=== PATIENT | male | born 1950 | race Caucasian/White ===

== ENCOUNTER 2017-03-29 10:26 | Emergency (ER) | payer MEDICARE ==
[2017-03-29 10:37] LABS: Glucose,Whole Blood 167 mg/dL (75-99)
--- NOTE | 2017-03-29 10:55 | ED ---
General Adult HPI - General Chief complaint: Syncope Stated complaint: Syncope Time Seen by Provider: 03/29/17 10:29 Source: patient, RN notes reviewed Mode of arrival: EMS Limitations: no limitations - History of Present Illness Initial comments: Patient is a pleasant 66-year-old male presenting to the emergency department following syncopal episode. Episode occurred just prior to arrival at a restaurant. Patient states he did have a coughing episode prior to passing out. Patient states he had a similar problem Wednesday also associated with coughing and passing out. Patient is symptom-free at this time. No dyspnea. Patient has had a cough for several days with occasional noncolored sputum. No chest pain. No headache or confusion or weakness. - Related Data Home Medications Medication Instructions Recorded Confirmed Ibuprofen [Motrin] 800 mg PO TID PRN 03/29/17 03/29/17 Lisinopril [Zestril] 10 mg PO DAILY 03/29/17 03/29/17 Metoprolol Succinate (ER) [Toprol 50 mg PO DAILY 03/29/17 03/29/17 XL] PARoxetine [Paxil] 20 mg PO DAILY 03/29/17 03/29/17 Simvastatin [Zocor] 40 mg PO HS 03/29/17 03/29/17 Terazosin [Hytrin] 5 mg PO BID 03/29/17 03/29/17 metFORMIN HCL [Glucophage] 500 mg PO DAILY 03/29/17 03/29/17 Allergies Allergy/AdvReac Type Severity Reaction Status Date / Time latex Allergy Rash/Hives Verified 03/29/17 10:50 Review of Systems ROS Statement: Those systems with pertinent positive or pertinent negative responses have been documented in the HPI. ROS Other: All systems not noted in ROS Statement are negative. Constitutional: Denies: fever Eyes: Denies: eye pain ENT: Denies: ear pain Respiratory: Reports: cough. Denies: dyspnea Cardiovascular: Denies: chest pain Endocrine: Denies: fatigue Gastrointestinal: Denies: abdominal pain Genitourinary: Denies: dysuria Musculoskeletal: Denies: back pain Skin: Denies: rash Neurological: Denies: weakness Past Medical History Past Medical History: Diabetes Mellitus, Hyperlipidemia, Hypertension History of Any Multi-Drug Resistant Organisms: None Reported Past Surgical History: Orthopedic Surgery Past Psychological History: Anxiety Smoking Status: Current every day smoker Past Alcohol Use History: Daily Past Drug Use History: None Reported General Exam Limitations: no limitations General appearance: alert, in no apparent distress Head exam: Present: atraumatic Eye exam: Present: normal appearance, PERRL, EOMI. Absent: nystagmus ENT exam: Present: normal oropharynx Neck exam: Present: normal inspection Respiratory exam: Present: normal lung sounds bilaterally Cardiovascular Exam: Present: normal rhythm, tachycardia Expanded Peripheral pulses: 2+: Radial (R), Radial (L), Dorsalis Pedis (R), Dorsalis Pedis (L) GI/Abdominal exam: Present: soft. Absent: tenderness Extremities exam: Present: normal inspection. Absent: pedal edema, calf tenderness Neurological exam: Present: alert, CN II-XII intact. Absent: motor sensory deficit Expanded Speech: Present: fluid speech Cranial nerves: EOM's Intact: Normal, Facial Sensation: Normal Cerebellar function: Finger to Nose: Normal Sensory exam: Upper Extremity Light Touch: Normal, Lower Extremity Light Touch: Normal Motor strength exam: RUE: 5, LUE: 5, RLE: 5, LLE: 5 Eye Response: (4) open spontaneously Motor Response: (6) obeys commands Verbal Response: (5) oriented Psychiatric exam: Present: normal affect, normal mood Skin exam: Present: normal color Course Vital Signs 03/29/17 03/29/17 03/29/17 10:26 10:51 11:30 Temperature 98.3 F Pulse Rate 110 H 99 Respiratory 20 16 Rate Blood Pressure 140/84 144/75 O2 Sat by Pulse 98 95 96 Oximetry 03/29/17 12:06 Temperature Pulse Rate 102 H Respiratory 16 Rate Blood Pressure 153/72 O2 Sat by Pulse 95 Oximetry EKG Findings - EKG Comments: EKG Findings:: Sinus tachycardia 110. TN 148. QRS 82. QT 344. QTC 465. Normal axis. Normal QRS. No acute ST change. Medical Decision Making - Medical Decision Making Patient reexamined and resting comfortably in bed. Patient is symptom-free. Patient is updated on results. Patient recommended admission for further evaluation. refuses admission and does demonstrate medical decision making. Patient does understand that all cause of syncope and has not been completely ruled out at this time. - Lab Data Result diagrams: 03/29/17 12:06 03/29/17 12:06 Lab Results 1003/29/17 03/29/17 Range/Units 10:35 12:06 12:06 WBC 8.9 (3.8-10.6) k/uL RBC 3.86 L (4.30-5.90) m/uL Hgb 13.3 (13.0-17.5) gm/dL Hct 38.6 L (39.0-53.0) % MCV 99.9 (80.0-100.0) fL MCH 34.4 (25.0-35.0) pg MCHC 34.4 (31.0-37.0) g/dL RDW 12.1 (11.5-15.5) % Plt Count 200 (150-450) k/uL Neutrophils % 76 % Lymphocytes % 13 % Monocytes % 6 % Eosinophils % 4 % Basophils % 0 % Neutrophils # 6.7 (1.3-7.7) k/uL Lymphocytes # 1.1 (1.0-4.8) k/uL Monocytes # 0.5 (0-1.0) k/uL Eosinophils # 0.4 (0-0.7) k/uL Basophils # 0.0 (0-0.2) k/uL PT (9.0-12.0) sec INR (<1.2) APTT (22.0-30.0) sec D-Dimer (<0.60) mg/L FEU Sodium (137-145) mmol/L Potassium (3.5-5.1) mmol/L Chloride (98-107) mmol/L Carbon Dioxide (22-30) mmol/L Anion Gap mmol/L BUN (9-20) mg/dL Creatinine (0.66-1.25) mg/dL Est GFR (MDRD) Af Amer (>60 ml/min/1.73 sqM) Est GFR (MDRD) Non-Af (>60 ml/min/1.73 sqM) Glucose (74-99) mg/dL POC Glucose (mg/dL) 167 H (75-99) mg/dL POC Glu Physical Security Engineer ID Beverly Hernandez Calcium (8.4-10.2) mg/dL Magnesium (1.6-2.3) mg/dL Total Bilirubin (0.2-1.3) mg/dL AST (17-59) U/L ALT (21-72) U/L Alkaline Phosphatase (38-126) U/L Total Creatine Kinase 60 (55-170) U/L CK-MB (CK-2) 0.5 (0.0-2.4) ng/mL CK-MB (CK-2) Rel Index 0.8 Troponin I <0.012 (0.000-0.034) ng/mL Total Protein (6.3-8.2) g/dL Albumin (3.5-5.0) g/dL Urine Color Urine Appearance (Clear) Urine pH (5.0-8.0) Ur Specific Dalton (1.001-1.035) Urine Protein (Negative) Urine Glucose (UA) (Negative) Urine Ketones (Negative) Urine Blood (Negative) Urine Nitrite (Negative) Urine Bilirubin (Negative) Urine Urobilinogen (<2.0) mg/dL Ur Leukocyte Esterase (Negative) Urine RBC (0-5) /hpf Urine WBC (0-5) /hpf Ur Squamous Epith Cells (0-4) /hpf Hyaline Casts (0-2) /lpf Urine Mucus (None) /hpf 03/29/17 03/29/17 03/29/17 Range/Units 12:06 12:06 13:20 WBC (3.8-10.6) k/uL RBC (4.30-5.90) m/uL Hgb (13.0-17.5) gm/dL Hct (39.0-53.0) % MCV (80.0-100.0) fL MCH (25.0-35.0) pg MCHC (31.0-37.0) g/dL RDW (11.5-15.5) % Plt Count (150-450) k/uL Neutrophils % % Lymphocytes % % Monocytes % % Eosinophils % % Basophils % % Neutrophils # (1.3-7.7) k/uL Lymphocytes # (1.0-4.8) k/uL Monocytes # (0-1.0) k/uL Eosinophils # (0-0.7) k/uL Basophils # (0-0.2) k/uL PT 10.7 (9.0-12.0) sec INR 1.1 (<1.2) APTT 23.0 (22.0-30.0) sec D-Dimer 1.30 H (<0.60) mg/L FEU Sodium 138 (137-145) mmol/L Potassium 4.2 (3.5-5.1) mmol/L Chloride 101 (98-107) mmol/L Carbon Dioxide 27 (22-30) mmol/L Anion Gap 10 mmol/L BUN 14 (9-20) mg/dL Creatinine 0.72 (0.66-1.25) mg/dL Est GFR (MDRD) Af Amer >60 (>60 ml/min/1.73 sqM) Est GFR (MDRD) Non-Af >60 (>60 ml/min/1.73 sqM) Glucose 134 H (74-99) mg/dL POC Glucose (mg/dL) (75-99) mg/dL POC Glu Physical Security Engineer ID Calcium 8.9 (8.4-10.2) mg/dL Magnesium 1.5 L (1.6-2.3) mg/dL Total Bilirubin 0.3 (0.2-1.3) mg/dL AST 58 (17-59) U/L ALT 48 (21-72) U/L Alkaline Phosphatase 73 (38-126) U/L Total Creatine Kinase (55-170) U/L CK-MB (CK-2) (0.0-2.4) ng/mL CK-MB (CK-2) Rel Index Troponin I (0.000-0.034) ng/mL Total Protein 7.0 (6.3-8.2) g/dL Albumin 3.8 (3.5-5.0) g/dL Urine Color Yellow Urine Appearance Clear (Clear) Urine pH 5.5 (5.0-8.0) Ur Specific Dalton 1.020 (1.001-1.035) Urine Protein 1+ H (Negative) Urine Glucose (UA) Negative (Negative) Urine Ketones Negative (Negative) Urine Blood Negative (Negative) Urine Nitrite Negative (Negative) Urine Bilirubin Negative (Negative) Urine Urobilinogen 2.0 (<2.0) mg/dL Ur Leukocyte Esterase Negative (Negative) Urine RBC 1 (0-5) /hpf Urine WBC 1 (0-5) /hpf Ur Squamous Epith Cells <1 (0-4) /hpf Hyaline Casts 6 H (0-2) /lpf Urine Mucus Moderate H (None) /hpf - Radiology Data Radiology results: report reviewed (Computed tomography scan of the brain shows no acute abnormality. Age-related atrophy. CT angios chest shows no evidence of pulmonary embolism.), image reviewed (Two-view chest x-ray shows lap band.) Disposition Clinical Impression: Syncope Disposition: Left Against Medical Advice Instructions: Syncope (ED) Additional Instructions: Please follow-up with primary care physician today or tomorrow. Return for difficulty breathing, chest pain, cough, passing out, worsening symptoms or any other concerns. Referrals: Inocencia Ashley DO [Primary Care Provider] - 1-2 days Time of Disposition: 15:09
[2017-03-29 12:17] LABS: Basophils % (A) 0 %; CH 33.7; CHCM 33.8; Eosinophils # (A) 0.4 k/uL (0-0.7); Eosinophils % (A) 4 %; HCT 38.6 % (39.0-53.0); HDW 2.42; HGB 13.3 gm/dL (13.0-17.5); Luc # (Auto) 0.13; Luc % (Auto) 2; Lymphocytes # (A) 1.1 k/uL (1.0-4.8); Lymphocytes % (A) 13 %; MCH 34.4 pg (25.0-35.0); MCHC 34.4 g/dL (31.0-37.0); MCV 99.9 fL (80.0-100.0); Mean Platelet Volume 7.3; Monocytes # (A) 0.5 k/uL (0-1.0); Monocytes % (A) 6 %; Neutrophils # (A) 6.7 k/uL (1.3-7.7); Neutrophils % (A) 76 %; RBC 3.86 m/uL (4.30-5.90); RDW 12.1 % (11.5-15.5); WBC 8.9 k/uL (3.8-10.6); WBC (Perox) 8.15
--- NOTE | 2017-03-29 12:22 | CT ---
EXAMINATION TYPE: CT brain wo con DATE OF EXAM: 03/29/2017 COMPARISON: Prior report dated February 2000 HISTORY: syncope CT DLP: 1121 mGycm Automated exposure control for dose reduction was used. Helical imaging through the brain FINDINGS: There is cortical atrophy. Periventricular white matter shows patchy low attenuation. There is no hem orrhage or hydrocephalus. Inflammatory change present in the sphenoid sinus and ethmoid air cells. Ce rebral vascular calcifications are noted. IMPRESSION: NO ACUTE BRAIN ABNORMALITY. SINUS DISEASE. NONSPECIFIC WHITE MATTER DEMYELINATION LIKELY DUE TO CHRON IC SMALL VESSEL ISCHEMIA, AGE RELATED ATROPHY.
--- NOTE | 2017-03-29 12:24 | XR ---
EXAMINATION TYPE: XR chest 2V DATE OF EXAM: 03/29/2017 COMPARISON: NONE HISTORY: Syncope TECHNIQUE: Frontal and lateral views of the chest are obtained. FINDINGS: Heart size is at the upper limit of normal. There are overlying cardiac leads. No focal pn eumonia, pneumothorax, or pleural effusion. LAP-BAND shows a transverse orientation. Pulmonary vascul arity and mirian within normal limits. Postop change noted to the left shoulder. IMPRESSION: Transverse orientation of the lap band, correlate for possible band slip, correlate with postoperative exam. Borderline cardiac size. Postop changes.
[2017-03-29 12:29] LABS: INR 1.1 (<1.2); Prothrombin Time 10.7 sec (9.0-12.0)
[2017-03-29 12:30] LABS: ALT 48 U/L (21-72); AST 58 U/L (17-59); Alkaline Phosphatase 73 U/L (38-126); Anion Gap 10 mmol/L; Blood Urea Nitrogen 14 mg/dL (9-20); Calcium 8.9 mg/dL (8.4-10.2); Carbon Dioxide 27 mmol/L (22-30); Chloride 101 mmol/L (98-107); Glucose 134 mg/dL (74-99); Magnesium 1.5 mg/dL (1.6-2.3); Non-African American GFR(MDRD) >60 (>60 ml/min/1.73 sqM); Potassium 4.2 mmol/L (3.5-5.1); Sodium 138 mmol/L (137-145); Total Bilirubin 0.3 mg/dL (0.2-1.3)
[2017-03-29 12:44] LABS: Creatine Kinase 60 U/L (55-170)
[2017-03-29 12:56] LABS: Creatine Kinase MB 0.5 ng/mL (0.0-2.4); Troponin I <0.012 ng/mL (0.000-0.034)
[2017-03-29 13:42] LABS: Appearance,Urine Clear (Clear); Bilirubin,Urine Negative (Negative); Glucose,Urine (UA) Negative (Negative); Ketones,Urine Negative (Negative); Leukocyte Esterase,Urine Negative (Negative); Mucus,Urine Moderate /hpf; Nitrite,Urine Negative (Negative); PH, Urine 5.5 (5.0-8.0); Particle Count 3934; Protein,Urine 1+ (Negative); RBC,Urine 1 /hpf (0-5); Squamous Epithelial Cell,Urine <1 /hpf (0-4); UA Billing (MACRO vs. MICRO) MICRO; WBC,Urine 1 /hpf (0-5)
[2017-03-29] MEDS ORDERED: RX INFO: IV CONTRAST WAS GIVEN 1 EACH MISC MISCELLANE PRN (14:11)
--- NOTE | 2017-03-29 14:57 | CT ---
EXAMINATION TYPE: CT angio chest DATE OF EXAM: 03/29/2017 COMPARISON: NONE HISTORY: Cough and syncope. CT DLP: 597 mGycm. Automated Exposure Control for Dose Reduction was Utilized. CONTRAST: CTA scan of the thorax is performed with IV Contrast, patient injected with 70 mL of Omnipaque 350, p ulmonary embolism protocol. MIP Images are created on CT scanner and reviewed. FINDINGS: LUNGS: Dependent atelectasis in both lower lobes is present otherwise lungs are grossly clear. Ther e is no suspicious parenchymal nodule or mass identified bilaterally. There is no pleural effusion or pneumothorax seen bilaterally. The tracheobronchial tree is patent. MEDIASTINUM: There is satisfactory enhancement of the pulmonary artery and its branches, there is no CT evidence for pulmonary embolism. There are no greater than 1 cm hilar or mediastinal lymph nodes. There are prominent but scattered subcentimeter thoracic lymph nodes. No cardiomegaly or pericardia l effusion is seen. OTHER: Liver is diffusely low dense consistent with fatty infiltration. Lap band device is noted in f elt satisfactory in position just below diaphragm. There is fairly moderate to severe multilevel spur ring in the spine. Metallic hardware from left shoulder surgery is partially imaged. IMPRESSION: 1. No CT evidence for acute pulmonary embolism. No suspicious acute pulmonary process or infiltrate.
[2017-03-29 15:28] VITALS: BP 148/70; PULSE 99; RESP 18; TEMP 98.7
== END 2017-03-29 15:15 | disposition left against medical advice (07) ==
LOC: EC 10:26
DX: R55 Syncope and collapse (principal); G31.9 Degenerative disease of nervous system, unspecified; R00.0 Tachycardia, unspecified; R05 Cough; E78.5 Hyperlipidemia, unspecified; I10 Essential (primary) hypertension; E11.9 Type 2 diabetes mellitus without complications; F41.9 Anxiety disorder, unspecified; F17.200 Nicotine dependence, unspecified, uncomplicated; Z79.84 Long term (current) use of oral hypoglycemic drugs; Z79.899 Other long term (current) drug therapy; Z91.040 Latex allergy status
CPT/HCPCS: 36415; 93005; 85379; 80053; 82550; 82553; 83735; 84484; 85025; 85610; 85730; 81001; 71020; 70450; 71275; 99285; Q9967

== ENCOUNTER 2017-04-27 07:11 | Day surgery (SDC) | payer MEDICARE ==
[2017-04-22 09:13] VITALS: BMI 30.7
[~2017-04-27 07:11] MED LIST: LACTATED RINGERS 1,000 ML IV SCH
[2017-04-27] MEDS: CYCLOPENTOLATE 1% OPHTH SOLN 2 ML BTL OP ONE ×3 (08:31→08:49)
[2017-04-27] MEDS: KETOROLAC 0.5% OPHTH DROPS 5 ML BTL OP ONE ×3 (08:34→08:51)
[2017-04-27] MEDS: PHENYLEPHRINE 10% OPHTH DROPS 5 ML BTL OP ONE ×3 (08:36→08:53)
[2017-04-27 08:39] VITALS: RESP 16; TEMP 97.2
[2017-04-27 08:39] LABS: Glucose,Whole Blood 192 mg/dL (75-99)
[2017-04-27] MEDS ORDERED: LIDOCAINE 1% 20 ML VIAL (10MG/ML) FOR IV START INTRADERMA ONE (08:39)
[2017-04-27] MEDS ORDERED: PROPOFOL 10 MG/ML 20 ML VIAL IV ONE (09:35)
[2017-04-27] MEDS ORDERED: EPINEPHrine (PF) 0.5 ML in BALANCED SALT IRRIG SOLN COMB2 500 ML IRRIGATION ONE (09:39)
[2017-04-27] MEDS ORDERED: HYALURONATE SODIUM INTRAOCULAR 1 EACH SYRINGE (10MG/ML) INTRAOCULA ONE (09:40)
[2017-04-27] MEDS ORDERED: BALANCED SALT IRRIG SOLN COMB2 15 ML IRRIG.SOLN INTRAOCULA ONE (09:40)
--- NOTE | 2017-04-27 10:02 | P.OP ---
Date of Procedure: 04/27/17 Procedure(s) Performed: PREOPERATIVE DIAGNOSIS: Cataract, right eye. POSTOPERATIVE DIAGNOSIS: Cataract, right eye. OPERATION: Phacoemulsification cataract, right eye. DESCRIPTION OF PROCEDURE: The patient was taken to the preoperative holding area. Intravenous Propofol was given so as to bring about adequate sedation. The following mixture was given for local anesthesia: 5 mL of 2% lidocaine, 5 mL of 0.75% Marcaine, and 1 mL of Wydase. Approximately 4 mL was injected in the retrobulbar space of the surgical eye. Additional 1 mL was then directed to the temporal area of the surgical eye. This was performed to allow adequate neurological block of the facial muscles. The patient was revived and then taken into the operative room. The patient was prepped and draped in the usual sterile manner for the operative eye. A lid speculum was put into position. The conjunctiva was resected back from the limbus in the 12 o'clock position. Bleeding was controlled with electrocautery. A #69 blade was then used and a half-thickness scleral incision approximately 1-mm posterior to the limbus was made on bare sclera. This was shelved in the clear cornea using a crescent knife. Next a 15-degree blade was used to make a stab incision at the 3 o' clock position at the corneolimbal interface. Keratome blade was then used and the superior wound was extended into the anterior chamber. Viscoelastic was injected into the anterior chamber and to maintain its form. Next, a cystotome was used and a continuous anterior capsulotomy was made without difficulty. Hydrodissection using a blunt cannula and BSS was performed. Phaco probe was then employed and a groove extending from 12 to 6 o'clock in the lens was created. A Nikhil wand was used through the stab incision so as to perform a divide and conquer technique. Next an irrigation aspiration probe was utilized and any residual cortex was removed from the eye. Again, viscoelastic was injected into the anterior chamber. An Shahriar posterior chamber lens implant was placed in the cartridge and injected into the anterior chamber without difficulty. The [employer] hook was utilized to spin the lens into position and this was again performed without any difficulty. The irrigation and aspiration probe was again employed and any residual viscoelastic was removed from the eye. Then BSS was injected into the limbal stab incision and the anterior chamber re-inflated. The conjunctiva was reapproximated using electrocautery. One drop of 0.25% Timoptic was placed over the corneal along with TobraDex ophthalmic ointment. Two sterile patches and a Sevilla eye shield were taped into position. The patient was transported to the recovery room in stable condition. Pathology: none sent Condition: stable Disposition: same day
[2017-04-27 10:08] LABS: Glucose,Whole Blood 202 mg/dL (75-99)
[2017-04-27 10:17] VITALS: BP 135/82; PULSE 69
[2017-04-27] MEDS ORDERED: TIMOLOL 0.5% OPHTH SOLN (PF) 0.2 ML DROPERETTE OP ONE (23:00)
[2017-04-27] MEDS ORDERED: BUPIVACAINE (PF) 0.75% 5 ML, LIDOCAINE 4% (PF) 5 ML, HYALURONIDASE, HUMAN RECOMB 150 UNIT MISCELLANE ONE ×3 (23:00)
[2017-04-27] MEDS ORDERED: GENTAMICIN/PREDNISOL AC OPHTH OINT 3.5GM OPHTHALMIC ONE (23:00)
== END 2017-04-27 10:31 | disposition home or self-care (01) ==
LOC: OR 07:11
PROVIDERS: ATTEND Ophthalmology
DX: E11.36 Type 2 diabetes mellitus with diabetic cataract (principal); I10 Essential (primary) hypertension; E78.5 Hyperlipidemia, unspecified; F17.290 Nicotine dependence, other tobacco product, uncomplicated; Z91.040 Latex allergy status; Z79.82 Long term (current) use of aspirin; Z79.1 Long term (current) use of non-steroidal anti-inflammatories (NSAID); Z79.84 Long term (current) use of oral hypoglycemic drugs; Z79.899 Other long term (current) drug therapy
CPT/HCPCS: 66984; V2632; J2001; J3470; J0171; J2704

== ENCOUNTER → 2017-08-30 | Outpatient (CLI) | payer MEDICARE ==
[2017-08-30 13:48] VITALS: BP 138/75; PULSE 95; RESP 15; BMI 32.4
--- NOTE | 2017-08-30 16:49 | P.HPBAR ---
Bariatric H&P - History & Physicial H&P Date: 08/30/17 History & Physicial: Visit/CC: band fill due to 8lb weight gain Patient initial contact: Initial weight: 87.543 kg Initial weight in pounds: 193.00 Height: 5 ft 6 in Initial BMI: 31.1 Last weight: Current weight: 91.172 kg Current weight in pounds: 201.00 Current BMI: 32.4 [place] body weight (based on NIH guidelines): 64.41 kg Excess body weight loss: The patient is a 67 year-old M who presents for Bariatric Assessment. The patient presents today for her LAP-BAND follow-up. He states he has no obstruction he has gained 8 pounds the last 2 weeks. Past Medical History Past Medical History: Diabetes Mellitus, Eye Disorder, Hyperlipidemia, Hypertension Additional Past Medical History / Comment(s): CATARACTS BILAT EYES History of Any Multi-Drug Resistant Organisms: None Reported Past Surgical History: Bariatric Surgery, Cholecystectomy, Orthopedic Surgery Additional Past Surgical History / Comment(s): PARTIAL LT KNEE REPLACEMENT. PARTIAL LT SHOULDER REPLACEMENT. RT WRIST SX. LAB BAND. COLONOSCOPY AND EGD Past Anesthesia/Blood Transfusion Reactions: No Reported Reaction Past Psychological History: Anxiety Smoking Status: Current every day smoker Past Alcohol Use History: Occasional Additional Past Alcohol Use History / Comment(s): SMOKES 2 CIGARS DAILY-SINCE AGE 20 Past Drug Use History: None Reported - Past Family History Mother Family Medical History: No Reported History Surgical - Exam Vital Signs Pulse Resp BP 95 15 138/75 08/30/17 13:45 08/30/17 13:45 08/30/17 13:45 - General well developed, no distress - Abdomen Abdomen: soft, non tender Bariatric Assessment & Plan Plan: The patient LAP-BAND was adjusted. He is found have a malfunctioning port. There is no fluid in his band. Patient will be scheduled for replacement of LAP -BAND port. Patient is also given the opportunity thinkable conversion sleeve gastrectomy he'll contact us when he makes his decision. Bariatric Checklist Checklist: Plan: Checklist: EGD: 1. Hiatal hernia: 2. H. Pylori: HgbA1c: Vitamin D: Smoking: Current every day smoker Primary care physician referral: Dr. Bladimir Miramontes ([place]) Psychiatry clearance: Cardiology clearance: Sleep study: Diet journal: VTE risk score: VTE risk level: Rehab needs at discharge:
== END | disposition home or self-care (01) ==
LOC: BARWHC3 13:29
PROVIDERS: ATTEND Surgery
DX: Z48.815 Encounter for surgical aftercare following surgery on the digestive system (principal); F17.200 Nicotine dependence, unspecified, uncomplicated; Z98.84 Bariatric surgery status
CPT/HCPCS: 99212

== ENCOUNTER 2017-09-24 07:15 | Day surgery (SDC) | payer MEDICARE ==
[2017-09-16 10:12] VITALS: BMI 31.9
[~2017-09-24 07:15] MED LIST changes: +DEXAMETHASONE SOD PHOSPHATE 10 MG/ML 1 ML VIAL IV ONE; +MIDAZOLAM 2 MG/2 ML VIAL IV PRN; +ONDANSETRON 4 MG/2 ML VIAL IVP ONE; +SCOPOLAMINE 1.5MG/72HR PATCH TRANSDERM ONE; +ceFAZolin IN SWFI 2 GM/20 ML SYRINGE IVP ONE; +fentaNYL (PF) 50 MCG/ML 2 ML AMP IV PRN
[2017-09-24 08:07] VITALS: RESP 16
[2017-09-24 08:12] LABS: Glucose,Whole Blood 173 mg/dL (75-99)
[2017-09-24] MEDS ORDERED: LIDOCAINE 1% 20 ML VIAL (10MG/ML) FOR IV START INTRADERMA ONE (08:14)
--- NOTE | 2017-09-24 10:09 | P.GSHP ---
History of Present Illness H&P Date: 09/24/17 Chief Complaint: LAP-BAND port malfunction This a 67-year-old male who presents today for laparoscopic removal and replacement of LAP-BAND port. Patient has had issues with inability of his LAP- BAND port due to retained fluid. Past Medical History Past Medical History: Diabetes Mellitus, Eye Disorder, Hyperlipidemia, Hypertension, Sleep Apnea/CPAP/BIPAP Additional Past Medical History / Comment(s): USES CPAP. LAP BAND W/ PORT PROBLEMS. History of Any Multi-Drug Resistant Organisms: None Reported Past Surgical History: Bariatric Surgery, Cholecystectomy, Orthopedic Surgery Additional Past Surgical History / Comment(s): PARTIAL LT KNEE REPLACEMENT. PARTIAL LT SHOULDER REPLACEMENT. RT WRIST SX. LAB BAND 2008 EST. COLONOSCOPY AND EGD Past Anesthesia/Blood Transfusion Reactions: No Reported Reaction Smoking Status: Current every day smoker - Past Family History Mother Family Medical History: No Reported History Medications and Allergies Home Medications Medication Instructions Recorded Confirmed Type Ibuprofen [Motrin] 800 mg PO TID PRN 03/29/17 09/24/17 History Metoprolol Succinate (ER) [Toprol 50 mg PO DAILY 03/29/17 09/24/17 History XL] PARoxetine [Paxil] 20 mg PO DAILY 03/29/17 09/24/17 History Simvastatin [Zocor] 40 mg PO HS 03/29/17 09/24/17 History Terazosin [Hytrin] 5 mg PO BID 03/29/17 09/24/17 History metFORMIN HCL [Glucophage] 500 mg PO DAILY 03/29/17 09/24/17 History Aspirin 81 mg PO DAILY 04/06/17 09/24/17 History Lisinopril [Zestril] 40 mg PO HS 08/30/17 09/24/17 History Glucosamine/Chondr Peterson A Sod [Osteo 1 each PO BID 09/16/17 09/24/17 History Bi-Flex Caplet] Multivitamins, Thera [Multivitamin 2 tab PO DAILY 09/16/17 09/24/17 History (formulary)] Allergies Allergy/AdvReac Type Severity Reaction Status Date / Time latex Allergy Rash/Hives Verified 09/16/17 09:49 Surgical - Exam Vital Signs Temp Pulse Resp BP Pulse Ox 97.5 F L 74 16 144/69 97 09/24/17 07:55 09/24/17 07:55 09/24/17 07:55 09/24/17 07:55 09/24/17 07:55 - General well developed, no distress - Eyes PERRL - ENT normal pinna - Neck no masses - Respiratory normal expansion - Cardiovascular Rhythm: regular - Abdomen Abdomen: soft, non tender Results - Labs Abnormal Lab Results - Last 24 Hours (Table) 09/24/17 Range/Units 08:05 POC Glucose (mg/dL) 173 H (75-99) mg/dL Assessment and Plan Assessment: LAP-BAND port bowel function. We'll perform laparoscopic removal and replacement of LAP-BAND port.
[2017-09-24] MEDS ORDERED: ROCURONIUM BROMIDE 10 MG/ML 10 ML VIAL IV ONE (10:26)
[2017-09-24] MEDS ORDERED: GLYCOPYRROLATE 0.2 MG/ML 2 ML VIAL ONE (10:26)
[2017-09-24] MEDS ORDERED: SUCCINYLCHOLINE CHLORIDE 100 MG/5 ML SYR IV ONE (10:26)
[2017-09-24] MEDS ORDERED: fentaNYL (PF) 50 MCG/ML 2 ML AMP ONE (10:26)
[2017-09-24] MEDS ORDERED: MIDAZOLAM 2 MG/2 ML VIAL ONE (10:26)
[2017-09-24] MEDS ORDERED: PROPOFOL 10 MG/ML 20 ML VIAL IV ONE (10:26)
[2017-09-24] MEDS ORDERED: NEOSTIGMINE 1 MG/ML 10 ML VIAL ONE (10:26)
[2017-09-24] MEDS ORDERED: DEXAMETHASONE SOD PHOS (MDV) 100 MG/10 ML VIAL ONE (10:26)
[2017-09-24] MEDS ORDERED: KETOROLAC 30 MG/ML 1 ML VIAL ONE (10:26)
[2017-09-24] MEDS ORDERED: BUPIVACAINE (PF) 0.25% 30 ML VIAL SQ ONE ×2 (10:35)
[2017-09-24 11:35] VITALS: TEMP 98
[2017-09-24] MEDS ORDERED: LACTATED RINGERS 1,000 ML IV ONE (11:38)
[2017-09-24 11:57] LABS: Glucose,Whole Blood 207 mg/dL (75-99)
[2017-09-24 12:55] VITALS: BP 138/77; PULSE 71
--- NOTE | 2017-09-29 08:53 | P.OP ---
Date of Procedure: 09/24/14 Preoperative Diagnosis: LAP-BAND port malfunction Postoperative Diagnosis: LAP-BAND port malfunction Procedure(s) Performed: Laparoscopic removal and replacement of LAP-BAND port Anesthesia: ZACKARY Surgeon: Shiva Mercado Pathology: other (LAP-BAND port) Condition: stable Disposition: PACU Description of Procedure: The patient's placed the operative table in the supine position. He received general anesthesia. His abdomen was prepped and draped usual sterile fashion. The skin was incised 1% local Xylocaine. Then using a 15 blade the skin was incised. Using blunt and sharp dissection with cautery the port was withdrawn from the subcutaneous tissues. tube was then cut. The LAP-BAND port area had evidence of rubbing on the fascia which caused an erosion of the port tubing. Using a 5 mm blade less trocar under direct visualization the pleural cavity was entered under direct visualization and then insufflated. After adequate insufflation the laparoscope was placed back. Cavity. Next a 10 mm trochars placed in the right epigastric position and then the PEG tube for the LAP-BAND system was brought up through the similar trocar site. The trochars withdrawn. And then the new LAP-BAND port was connected to the LAP-BAND Tube and then secured to the fascia using 0 Nurolon suture. The LAP-BAND was insufflated with 1 mL of normal saline. There is no bleeding seen. The skin was closed interrupted 3-0 Monocryl suture. Dermabond was applied. Patient top procedure well and was sent to recovery in stable condition.
== END 2017-09-24 13:03 | disposition home or self-care (01) ==
LOC: OR 07:15
PROVIDERS: ATTEND Surgery
DX: T85.518A Breakdown (mechanical) of other gastrointestinal prosthetic devices, implants and grafts, initial encounter (principal); E11.9 Type 2 diabetes mellitus without complications; E78.5 Hyperlipidemia, unspecified; I10 Essential (primary) hypertension; G47.33 Obstructive sleep apnea (adult) (pediatric); Z99.89 Dependence on other enabling machines and devices; F17.290 Nicotine dependence, other tobacco product, uncomplicated; Z79.84 Long term (current) use of oral hypoglycemic drugs; Z79.82 Long term (current) use of aspirin; Z79.899 Other long term (current) drug therapy; Z91.040 Latex allergy status
CPT/HCPCS: 43659; C1751; J2250; J1100 ×2; J2710; J2405; J3010; J1885; J0330; J2704; J0690

== ENCOUNTER → 2017-10-04 | Outpatient (CLI) | payer MEDICARE ==
[2017-10-04 15:00] VITALS: BP 149/77; PULSE 79; TEMP 98.5; BMI 32.5
--- NOTE | 2017-10-04 15:39 | P.HPBAR ---
Bariatric H&P - History & Physicial H&P Date: 10/04/17 History & Physicial: Visit/CC: post op follow up Patient initial contact: Initial weight: 87.543 kg Initial weight in pounds: 193.00 Height: 5 ft 6 in Initial BMI: 31.1 Last weight: Current weight: 91.49 kg Current weight in pounds: 201.70 Current BMI: 32.5 [place] body weight (based on NIH guidelines): 64.41 kg Excess body weight loss: The patient is a 67 year-old M who presents for Bariatric Assessment. The patient presents today for lab band follow up. He is requesting a fill of his band. He currently feels hungry. Past Medical History Past Medical History: Diabetes Mellitus, Eye Disorder, Hyperlipidemia, Hypertension, Sleep Apnea/CPAP/BIPAP Additional Past Medical History / Comment(s): USES CPAP. LAP BAND W/ PORT PROBLEMS. History of Any Multi-Drug Resistant Organisms: None Reported Past Surgical History: Bariatric Surgery, Cholecystectomy, Orthopedic Surgery Additional Past Surgical History / Comment(s): PARTIAL LT KNEE REPLACEMENT. PARTIAL LT SHOULDER REPLACEMENT. RT WRIST SX. LAB BAND 2008 EST. COLONOSCOPY AND EGD. lap band port replacement to right side abdomen 09-24-17 Past Anesthesia/Blood Transfusion Reactions: No Reported Reaction Smoking Status: Current every day smoker - Past Family History Mother Family Medical History: No Reported History Surgical - Exam Vital Signs Temp Pulse BP 98.5 F 79 149/77 10/04/17 14:56 10/04/17 14:56 10/04/17 14:56 - General well developed, no distress - Eyes PERRL - Abdomen Abdomen: soft, non tender Bariatric Assessment & Plan Plan: The patient had a recent replacement was LAP-BAND. His incision sites are clean dry intact. The patient's band was adjusted. He had 0.5 mL in the band. 2 mL was added to his band he has a total of 2.5 mL in the band. He'll follow -up in one month. Bariatric Checklist Checklist: Plan: Checklist: EGD: 1. Hiatal hernia: 2. H. Pylori: HgbA1c: Vitamin D: Smoking: Current every day smoker Primary care physician referral: Dr. Bladimir Miramontes ([place]) Psychiatry clearance: Cardiology clearance: Sleep study: Diet journal: VTE risk score: VTE risk level: Rehab needs at discharge:
== END | disposition home or self-care (01) ==
LOC: BARWHC3 14:18
PROVIDERS: ATTEND Surgery
DX: Z09 Encounter for follow-up examination after completed treatment for conditions other than malignant neoplasm (principal); T73.0XXA Starvation, initial encounter; E11.9 Type 2 diabetes mellitus without complications; E78.5 Hyperlipidemia, unspecified; I10 Essential (primary) hypertension; G47.30 Sleep apnea, unspecified; F17.200 Nicotine dependence, unspecified, uncomplicated; Z98.84 Bariatric surgery status; Z90.49 Acquired absence of other specified parts of digestive tract; Z98.890 Other specified postprocedural states; Z99.89 Dependence on other enabling machines and devices; Z96.652 Presence of left artificial knee joint; Z96.612 Presence of left artificial shoulder joint
CPT/HCPCS: 99212

== ENCOUNTER → 2017-10-11 | Outpatient (CLI) | payer MEDICARE ==
[~2017-10-11] MED LIST changes: -DEXAMETHASONE SOD PHOSPHATE 10 MG/ML 1 ML VIAL IV ONE; -LACTATED RINGERS 1,000 ML IV SCH; -MIDAZOLAM 2 MG/2 ML VIAL IV PRN; -ONDANSETRON 4 MG/2 ML VIAL IVP ONE; -SCOPOLAMINE 1.5MG/72HR PATCH TRANSDERM ONE; +SULFAMETHOX-TMP 800-160MG 1 EACH TAB PO SCH; -ceFAZolin IN SWFI 2 GM/20 ML SYRINGE IVP ONE; -fentaNYL (PF) 50 MCG/ML 2 ML AMP IV PRN
[2017-10-11 13:29] VITALS: BP 159/77; PULSE 77; TEMP 98.1; BMI 32.3
--- NOTE | 2017-10-11 15:09 | P.HPBAR ---
Bariatric H&P - History & Physicial H&P Date: 10/11/17 History & Physicial: Visit/CC: post surgery follow up Patient initial contact: Initial weight: 87.543 kg Initial weight in pounds: 193.00 Height: 5 ft 6 in Initial BMI: 31.1 Last weight: Current weight: 90.764 kg Current weight in pounds: 200.10 Current BMI: 32.3 [place] body weight (based on NIH guidelines): 64.41 kg Excess body weight loss: The patient is a 67 year-old M who presents for Bariatric Assessment. The patient presents today for follow-up. He had a recent LAP-BAND port removal and replacement. He has no real complaints. He states he has some mild cellulitis and one of his incision sites Past Medical History Past Medical History: Diabetes Mellitus, Eye Disorder, Hyperlipidemia, Hypertension, Sleep Apnea/CPAP/BIPAP Additional Past Medical History / Comment(s): USES CPAP. LAP BAND W/ PORT PROBLEMS. History of Any Multi-Drug Resistant Organisms: None Reported Past Surgical History: Bariatric Surgery, Cholecystectomy, Orthopedic Surgery Additional Past Surgical History / Comment(s): PARTIAL LT KNEE REPLACEMENT. PARTIAL LT SHOULDER REPLACEMENT. RT WRIST SX. LAB BAND 2008 EST. COLONOSCOPY AND EGD. lap band port replacement to right side abdomen 09-24-17 Past Anesthesia/Blood Transfusion Reactions: No Reported Reaction Smoking Status: Current every day smoker - Past Family History Mother Family Medical History: No Reported History Surgical - Exam Vital Signs Temp Pulse BP 98.1 F 77 159/77 10/11/17 13:09 10/11/17 13:09 10/11/17 13:09 - General well developed, no distress - Eyes PERRL - ENT normal pinna - Neck no masses - Respiratory normal expansion - Cardiovascular Rhythm: regular - Abdomen The patient has some mild cellulitis at the right incision site. Abdomen: soft, non tender Bariatric Assessment & Plan Plan: Mild cellulitis. Patient was placed on Bactrim DS. Bariatric Checklist Checklist: Plan: Checklist: EGD: 1. Hiatal hernia: 2. H. Pylori: HgbA1c: Vitamin D: Smoking: Current every day smoker Primary care physician referral: Dr. Bladimir Miramontes ([place]) Psychiatry clearance: Cardiology clearance: Sleep study: Diet journal: VTE risk score: VTE risk level: Rehab needs at discharge:
== END | disposition home or self-care (01) ==
LOC: BARWHC3 12:34
PROVIDERS: ATTEND Surgery
DX: Z09 Encounter for follow-up examination after completed treatment for conditions other than malignant neoplasm (principal); T81.4XXA Infection following a procedure, initial encounter; L03.311 Cellulitis of abdominal wall; E11.9 Type 2 diabetes mellitus without complications; E78.5 Hyperlipidemia, unspecified; I10 Essential (primary) hypertension; G47.30 Sleep apnea, unspecified; Z99.89 Dependence on other enabling machines and devices; Z98.84 Bariatric surgery status; Z90.49 Acquired absence of other specified parts of digestive tract; Z96.651 Presence of right artificial knee joint; Z96.612 Presence of left artificial shoulder joint
CPT/HCPCS: 99211

== ENCOUNTER → 2018-02-14 | Outpatient (CLI) | payer MEDICARE ==
[2018-02-14 13:26] VITALS: BP 136/81; PULSE 80; TEMP 98; BMI 31.7
--- NOTE | 2018-02-14 15:35 | P.HPBAR ---
Bariatric H&P - History & Physicial H&P Date: 02/14/18 History & Physicial: Visit/CC: lap band follow up Patient initial contact: Initial weight: 87.543 kg Initial weight in pounds: 193.00 Height: 5 ft 6 in Initial BMI: 31.1 Last weight: 200 Current weight: 89.131 kg Current weight in pounds: 196.50 Current BMI: 31.7 [place] body weight (based on NIH guidelines): 64.41 kg Excess body weight loss: The patient is a 67 year-old M who presents for Bariatric Assessment. Patient presents today for lab band follow. He is requesting a fill of his LAP-BAND. He currently feels no restriction. Past Medical History Past Medical History: Diabetes Mellitus, Eye Disorder, Hyperlipidemia, Hypertension, Sleep Apnea/CPAP/BIPAP Additional Past Medical History / Comment(s): USES CPAP. LAP BAND W/ PORT PROBLEMS. History of Any Multi-Drug Resistant Organisms: None Reported Past Surgical History: Bariatric Surgery, Cholecystectomy, Orthopedic Surgery Additional Past Surgical History / Comment(s): PARTIAL LT KNEE REPLACEMENT. PARTIAL LT SHOULDER REPLACEMENT. RT WRIST SX. LAB BAND 2008 EST. COLONOSCOPY AND EGD. lap band port replacement to right side abdomen 09-24-17 Past Anesthesia/Blood Transfusion Reactions: No Reported Reaction Smoking Status: Current every day smoker - Past Family History Mother Family Medical History: No Reported History Surgical - Exam Vital Signs Temp Pulse BP 98.0 F 80 136/81 02/14/18 13:24 02/14/18 13:24 02/14/18 13:24 - General well developed, well nourished, no distress - Eyes PERRL - Abdomen Abdomen: soft, non tender Bariatric Assessment & Plan Plan: Patient's lap band was adjusted. He had 0.5 mL added to his band. He will follow-up in 4 weeks. Bariatric Checklist Checklist: Plan: Checklist: EGD: 1. Hiatal hernia: 2. H. Pylori: HgbA1c: Vitamin D: Smoking: Current every day smoker Primary care physician referral: Dr. Bladimir Miramontes ([place]) Psychiatry clearance: Cardiology clearance: Sleep study: Diet journal: VTE risk score: VTE risk level: Rehab needs at discharge:
== END | disposition home or self-care (01) ==
LOC: BARWHC3 12:50
PROVIDERS: ATTEND Surgery
DX: Z48.815 Encounter for surgical aftercare following surgery on the digestive system (principal); F17.200 Nicotine dependence, unspecified, uncomplicated; Z98.84 Bariatric surgery status
CPT/HCPCS: 99212

== ENCOUNTER → 2020-03-19 | Outpatient (CLI) | payer MEDICARE ==
[2020-03-19 15:43] LABS: HCT 41.3 % (39.0-53.0); HGB 13.6 gm/dL (13.0-17.5); MCH 33.3 pg (25.0-35.0); MCV 100.8 fL (80.0-100.0); Mean Platelet Volume 8.5; Platelet Count 190 k/uL (150-450); RBC 4.09 m/uL (4.30-5.90); RDW 12.3 % (11.5-15.5); WBC 9.4 k/uL (3.8-10.6)
[2020-03-19 15:51] LABS: Appearance,Urine Clear (Clear); Bilirubin,Urine Negative (Negative); Blood,Urine Negative (Negative); Color,Urine Yellow; Glucose,Urine (UA) 3+ (Negative); Ketones,Urine Negative (Negative); Leukocyte Esterase,Urine Negative (Negative); Nitrite,Urine Negative (Negative); Protein,Urine Negative (Negative); Specific Gravity,Urine 1.013 (1.001-1.035); Urobilinogen,Urine <2.0 mg/dL (<2.0)
[2020-03-19 15:57] LABS: Partial Thromboplastin Time 25.3 sec (22.0-30.0); Prothrombin Time 10.5 sec (9.0-12.0)
== END | disposition home or self-care (01) ==
LOC: LABPAT 12:11
PROVIDERS: ATTEND Orthopaedic Surgery Sports Medicine
DX: Z01.818 Encounter for other preprocedural examination (principal); Z01.812 Encounter for preprocedural laboratory examination; M17.11 Unilateral primary osteoarthritis, right knee
CPT/HCPCS: 81003; 85027; 85610; 85730; 87070

== ENCOUNTER → 2020-03-19 | Outpatient (CLI) | payer MEDICARE ==
[2020-03-20 01:30] LABS: Hemoglobin A1C 6.3 % (4.0-6.0)
[2020-03-20 05:39] LABS: African American GFR (CKD) 64.1 (60.0-200.0); Albumin 4.5 g/dL (3.80-4.90); Albumin/Globulin Ratio 1.73 (1.60-3.17); Anion Gap 11.9 mmol/L (4.00-12.00); BUN/Creat Ratio 18.46 Ratio (12.00-20.00); Calcium 9.8 mg/dL (8.7-10.3); Carbon Dioxide 23.1 mmol/L (21.6-31.8); Globulin 2.6 g/dL (1.6-3.3); Non-African American GFR(CKD) 55.3 (60.0-200.0); Total Bilirubin 0.5 mg/dL (0.3-1.2); Total Protein 7.1 g/dL (6.2-8.2)
[2020-03-20 05:54] LABS: Prostate Specific Antigen 0.3 ng/mL (0.0-6.5)
== END | disposition home or self-care (01) ==
LOC: LABWHC1 12:17
PROVIDERS: ATTEND Family Medicine
DX: N40.0 Benign prostatic hyperplasia without lower urinary tract symptoms (principal); D64.9 Anemia, unspecified
CPT/HCPCS: 36415; 80053; 83036; 84153

== ENCOUNTER → 2020-04-01 | Outpatient (CLI) | payer MEDICARE ==
[2020-04-01 13:48] VITALS: BP 121/70; PULSE 86; RESP 18; TEMP 98.3; BMI 32.9
--- NOTE | 2020-04-01 14:12 | P.HPBAR ---
Bariatric H&P - History & Physicial H&P Date: 04/01/20 History & Physicial: Visit/CC: lap band adjustment Patient initial contact: Initial weight: 87.543 kg Initial weight in pounds: 193.00 Height: 5 ft 6 in Initial BMI: 31.1 Last weight: Current weight: 92.533 kg Current weight in pounds: 204.00 Current BMI: 32.9 [place] body weight (based on NIH guidelines): 64.41 kg Excess body weight loss: The patient is a 69 year-old M who presents for Bariatric Assessment. Patient resents today for her LAP-BAND adjustment. He is having in total knee replacement this week. He is requesting fluid removed. Past Medical History Past Medical History: Diabetes Mellitus, Hyperlipidemia, Hypertension, Osteoarthritis (OA), Sleep Apnea/CPAP/BIPAP Additional Past Medical History / Comment(s): USES CPAP. LAP BAND W/ PORT PROB LEMS. History of Any Multi-Drug Resistant Organisms: None Reported Past Surgical History: Bariatric Surgery, Cholecystectomy, Joint Replacement, Orthopedic Surgery Additional Past Surgical History / Comment(s): PARTIAL LT KNEE REPLACEMENT. PARTIAL LT SHOULDER REPLACEMENT. RT WRIST SX. LAB BAND 2008 EST. COLONOSCOPY AND EGD. BILAT CATARACTS REMOVED WITH LENS IMPLANTS. lap band port replacement to right side abdomen 09-24-17 Past Anesthesia/Blood Transfusion Reactions: No Reported Reaction Smoking Status: Current every day smoker - Past Family History Mother Family Medical History: No Reported History Surgical - Exam Vital Signs Temp Pulse Resp BP 98.3 F 86 18 121/70 04/01/20 13:41 04/01/20 13:41 04/01/20 13:41 04/01/20 13:41 - General well developed, well nourished, no distress - Eyes PERRL - ENT normal pinna - Neck no masses - Respiratory normal expansion - Cardiovascular Rhythm: regular - Abdomen Abdomen: soft, non tender Bariatric Assessment & Plan Plan: Patient's lap band was adjusted. 0.7 mL remove the band. He has currently empty. He'll follow-up after his new placed was done for a refill of his band. Bariatric Checklist Checklist: Plan: Checklist: EGD: 1. Hiatal hernia: 2. H. Pylori: HgbA1c: Vitamin D: Smoking: Current every day smoker Primary care physician referral: Dr. Bladimir Miramontes ([place]) Psychiatry clearance: Cardiology clearance: Sleep study: Diet journal: VTE risk score: VTE risk level: Rehab needs at discharge:
== END | disposition home or self-care (01) ==
LOC: BARWHC3 13:25
PROVIDERS: ATTEND Surgery
DX: Z46.51 Encounter for fitting and adjustment of gastric lap band (principal); F17.200 Nicotine dependence, unspecified, uncomplicated; Z98.84 Bariatric surgery status; Z90.49 Acquired absence of other specified parts of digestive tract
CPT/HCPCS: 99212

== ENCOUNTER 2020-04-04 06:47 | Day surgery (SDC) | payer MEDICARE ==
[2020-03-29 11:09] VITALS: BMI 32.3
[~2020-04-04 06:47] MED LIST changes: +ACETAMINOPHEN TAB 500 MG TAB PO ONE; +DEXAMETHASONE SOD PHOSPHATE 10 MG/ML 1 ML VIAL IV ONE; +GABAPENTIN 300 MG CAP PO ONE; +HYDROmorphone 0.5 MG/0.5 ML SYRINGE IVP PRN; +MELOXICAM 7.5 MG TAB PO ONE; +MIDAZOLAM 2 MG/2 ML VIAL IV PRN; +ONDANSETRON 4 MG/2 ML VIAL IVP ONE; +ROPIVACAINE 246.25 MG, EPINEPHrine 0.5 MG, KETOROLAC 30 MG, cloNIDine HCL/PF 80 MCG, WA... MISCELLANE ONE; -SULFAMETHOX-TMP 800-160MG 1 EACH TAB PO SCH; +TRANEXAMIC ACID 1,000 MG in SODIUM CHLORIDE 0.9% 100 ML IVPB ONE
[2020-04-04] MEDS: LACTATED RINGERS 1,000 ML IV SCH ×4 (07:20→23:44)
[2020-04-04] MEDS ORDERED: LIDOCAINE 1% (10MG/ML) FOR IV START INTRADERMA ONE (07:20)
[2020-04-04 07:41] LABS: Glucose,Whole Blood 177 mg/dL (75-99)
[2020-04-04] MEDS ORDERED: SODIUM CHLORIDE 0.9% 100 ML BAG ONE (07:54)
[2020-04-04] MEDS ORDERED: TRANEXAMIC ACID 1,000 MG/10 ML VIAL ONE (07:54)
[2020-04-04] MEDS ORDERED: MIDAZOLAM 2 MG/2 ML VIAL ONE (07:54)
[2020-04-04] MEDS ORDERED: fentaNYL (PF) 50 MCG/ML 2 ML AMP ONE (07:54)
[2020-04-04] MEDS ORDERED: ceFAZolin 3,000 MG in SODIUM CHLORIDE 0.9% IRRIGATIO 3,000 ML IRRIGATION ONE (08:30)
[2020-04-04] MEDS ORDERED: ROPIVACAINE 0.2%-NS ON-Q PUMP 1,090 MG, EMPTY PAIN BALL 1 EACH MISCELLANE PRN (08:44)
--- NOTE | 2020-04-04 08:46 | P.ANPRN ---
Procedure Note - Anesthesia - Nerve Block Performed Right Adductor Canal Infusion Time Out Performed: Yes ([id number]) Date of Procedure: 04/04/20 Procedure Start Time: 07:42 Procedure Stop Time: 07:47 Location of Patient: PreOp Indication: Acute Post-Operative Pain, Requested by Surgeon Specifically requested for management of pain by DrKate: Edwar Robison Sedation Type: Sedate with meaningful contact maintained Preparation: Sterile Prep Position: Supine Catheter Depth at Skin (cm): 6 Catheter: Indwelling Needle Types: Pajunk Needle Gauge: 21 Ultrasound used to visualize needle placement: Yes Ultrasound used to observe medication spread: Yes Injectate: 0.5% Ropivacaine (see comment for volume) Blood Aspirated: No Pain Paresthesia on Injection Noted: No Resistance on Injection: Normal Image Stored and Saved: Yes Events: Uneventful and Well Tolerated
[2020-04-04] MEDS ORDERED: HYDROcodone/APAP 5-325MG 1 EACH TAB PO PRN (09:53)
[2020-04-04] MEDS ORDERED: bisacodyL 10 MG SUPP RECTAL PRN (09:53)
[2020-04-04] MEDS ORDERED: NALOXONE 0.4 MG/ML 1 ML VIAL IV PRN (09:53)
[2020-04-04] MEDS ORDERED: MAGNESIUM HYDROXIDE 2,400 MG/10 ML CUP PO PRN (09:53)
[2020-04-04] MEDS ORDERED: HYDROmorphone 0.5 MG/0.5 ML SYRINGE IVP PRN ×3 (09:53)
[2020-04-04] MEDS ORDERED: diazePAM 5 MG TAB PO PRN (09:53)
[2020-04-04] MEDS ORDERED: ONDANSETRON 4 MG/2 ML VIAL IVP PRN (09:53)
[2020-04-04] MEDS ORDERED: traMADol 50 MG TAB PO PRN (09:53)
[2020-04-04] MEDS ORDERED: NA PHOS,M-B/NA PHOS,DI-BA 133 ML ENEMA RECTAL PRN (09:53)
[2020-04-04] MEDS ORDERED: TEMAZEPAM 15 MG CAP PO PRN (09:53)
[2020-04-04] MEDS ORDERED: ACETAMINOPHEN TAB 325 MG TAB PO PRN (09:53)
[2020-04-04 10:28] LABS: Glucose,Whole Blood 192 mg/dL (75-99)
[2020-04-04] MEDS ORDERED: LACTATED RINGERS 1,000 ML IV ONE ×2 (10:42)
--- NOTE | 2020-04-04 10:43 | XR ---
Right knee Limited HISTORY: Postop 2 views of the right knee Patient is status post right knee arthroplasty. There is anatomic alignment. Lucency is present in th e soft tissues. There are atherosclerotic vascular calcifications. IMPRESSION: Orthopedic follow-up.
--- NOTE | 2020-04-04 15:11 | OP ---
OPERATIVE REPORT DATE OF PROCEDURE: 04/04/2020 SURGEON: Edwar Robison M.D. TRANSPORTATION MODELER: CRUZ Knight. PREOPERATIVE DIAGNOSIS: Right knee osteoarthrosis. POSTOPERATIVE DIAGNOSIS: Right knee osteoarthrosis. OPERATION: Right total knee arthroplasty. ANESTHESIA: Spinal with sedation. ESTIMATED BLOOD LOSS: 100 mL. TOURNIQUET: Tourniquet time was 48 minutes at 250 mmHg. COMPLICATIONS: None apparent. DRAINS: None. DISPOSITION: Postanesthesia care unit. INDICATIONS: Amilcar is a 69-year-old male with longstanding history of right knee pain. History and physical examination are consistent with advanced right knee osteoarthrosis. He has been through significant nonoperative management up to this point. Further treatment options were discussed and he has decided to go forward with a right total knee arthroplasty. The risks of the procedure were discussed with him in detail. These risks include, but are not limited to risk of infection, nerve damage, bleeding, pain, and a small risk of deep vein thrombosis which could lead to fatal pulmonary embolism. There is also risk of loosening of the implant which could require revision operation. The patient understands these risks. All of his questions were answered to his satisfaction. Appropriate informed consent was obtained. DESCRIPTION OF PROCEDURE: Patient identified in the preoperative holding area. Surgical site was marked by both the patient and myself. He was given 2 g of Ancef IV for prophylactic purposes. He was then transferred to the operative suite, where he was placed supine on the operative table. Spinal anesthetic was then administered and dosed per the Anesthesia Department without apparent complication. Examination under anesthesia was then performed. The patient was 5-7 degrees shy of full extension. He had 95 degrees of flexion. The medial collateral ligament, lateral collateral ligament and posterior cruciate ligaments were stable. Tourniquet was then placed high on the right upper thigh, well-padded in preparation for surgery. The patient's right lower extremity was then prepped, draped in usual sterile fashion. Standard surgical pause undertaken to ensure that we were operating on the correct site and that appropriate preoperative antibiotics were given. All staff in the room were in agreement and we proceeded. The outlines of the patella marked with surgical pen. A planned 12 cm vertical incision centered over the patella was marked with surgical pen. Leg was then exsanguinated with an Esmarch dressing. The knee was then flexed and tourniquet inflated to 250 mmHg. The total tourniquet time for the procedure was 48 minutes. Incision was then made with a 10 blade scalpel. Dissection was carried down sharply overlying fascia. Great care was taken to minimize the skin flaps. The knee was then exposed using a standard medial parapatellar approach. A small cuff of quadriceps tendon was then left for suturing. He was in quite a bit of varus preoperatively. A standard medial release was then made. Superficial medial collateral ligament was dissected off the bone around to the posterior aspect of the proximal tibia. The mini medial meniscus was then excised as well. The lateral meniscus was also released anteriorly. The leg was then externally rotated. The patella was everted. The knee was flexed. Retractors were then placed to protect the collateral ligaments. I then proceeded to remove the infrapatellar fat pad. This was excised sharply, tangentially with fibers of the patellar tendon. I then proceeded to remove the peripheral osteophytes. This is done with a rongeur. I then proceed with the distal femoral resection. He did have a flexion contracture. A planned 11 mm resection was then done. The femoral canal was then entered in midline of the femur, approximately 10 mm anterior to the origin of the posterior cruciate ligament. The cricket was then advanced down the center of the femur and placed intramedullary. Based on the preoperative radiographs, the angle between the anatomic and mechanical axis of the femur was approximately 4-5 degrees. The valgus angle of the distal femoral cutting guide was then set at 4 degrees for the right knee. The distal femoral cutting guide was then advanced over the intramedullary cricket. This was seated firmly against the femur. Then as mentioned planned to take 11 mm off the distal femur. The cutting block was then secured onto the femur with pins. The jig was then removed. The distal femoral cut was made through the slot of the block. The pins then removed and the distal femoral cutting block was removed. The accuracy of this femoral cuts was checked with 2 flat bars. I then proceeded to femoral sizing. The posterior referencing sizing guide was held firmly against the resected distal surface of the femur. The posterior condyles were resting on the posterior plane of the guide. The sizing stylus was then placed onto the anterior femur. The size was measured as a size 7. I then assessed for femoral rotation. Plan was for 3 degrees external rotation. Three degrees external rotation was placed onto the jig. These holes were then marked. I then confirmed the rotation by 3 separate methods. This was done using epicondylar axis as well as Whitesides line and posterior referencing. They deemed that the external rotation was proper. I then went forward placing the femoral cutting block. This was placed over the previously placed pin holes. The [place] wing was then placed on the anterior slots to ensure that we would not notch the anterior femur with the anterior femoral cut. I then proceeded with the anterior femoral cut. This was flush with the anterior cortex of the femur. The posterior cuts were then made followed by the anterior chamfer cut, then the posterior chamfer cut. The cutting block was then removed. Throughout the resection, the collateral ligaments were protected with retractors. I then placed a trial size 7 femur. It fit very nice medial-lateral and fit flush with the distal end of the femur. The drill holes were then made. I then proceeded with the tibial cut. I planned for cruciate retaining knee. The guide was placed in separate varus valgus and then for slope. The height was set for approximate 2 mm resection from the medial tibial plateau which was the lower side. I was happy with the alignment and the amount of resection. The cutting block was then pinned to the proximal tibia. The alignment cricket was removed. The proximal tibia was resected with a reciprocating saw. Again this was done with retractors protecting the collateral ligaments as well as the posterior cruciate ligament. I then proceeded to evaluate the flexion and extension gaps. A 10 mm block was then placed. The flexion-extension gaps were equal. I then proceeded with resection of posterior osteophytes. There was very extensive posterior osteophytes. This was done using a curved osteotome. This resected the posterior osteophytes and posterior capsule stripping was done off the posterior aspect of the femur at this time. The osteophytes were then removed. I then proceed to resection of the patella. The thickness of the patella was measured using the caliper. The thickness was 22 mm. The thickness of the anticipated patellar dome was taken into account. The resection was then performed and confirmed to be equal in 4 quadrants using a caliper. Approximately 14 mm of bone remained after resection. A 32 x 9 standard patellar trial was then placed. The holes were drilled. The trial was then placed. I then proceeded with sizing the tibial plate. A size E tibial plate fit very nicely. I then placed the trial femur, the tibial tray and patellar button. A 10 mm trial tibial insert was also placed. The components fit very nicely. He had full extension and flexion. The extension flexion gaps were equal and stable to both varus and valgus stress. The patella tracked appropriately. The tibial tray rotation was marked with a Bovie. This was externally rotated properly. I then proceed with tibial preparation. First, drilled the femoral holes and removed femoral component. The tibial tray was then set for proper external rotation as well as mediolateral placement onto the tibia. It was then pinned into place. I then proceeded with punching the keel. I then decided to proceed with cementing of all of our components. The knee was thoroughly irrigated with sterile saline solution with antibiotic added via pulse lavage. The lateral geniculate artery was identified and cauterized. All blood was removed from the bone of the tibia, femur, and patella with pulse lavage. I then proceed with cementing. Two packs of antibiotic bone cement prepared on the back table by the surgical scrub tech. I then proceed with cementing the tibia first. The cement was impacted into the keel as well as deeply seated into the bone. A second coat of cement was then placed. The tibia was then impacted into place. Excess cement was removed with Mcgrath's and jokers. I then proceed with cementing of the femoral component. The femoral component was also cemented using standard technique. Excess cement was removed. A 10 mm trial insert was then placed into the knee. It was brought into full extension with a constant axial load placed until the cement had hardened The patellar component was then cemented. This held firmly with a compressive device until the cement had dried. When the cement had dried, the knee was taken out of extension. All excess cement was removed from around the prosthesis. I then trialed the knee with a 10 mm insert. Flexion-extension gaps were appropriate. The knee was stable. It came in full extension. I decided to go for the 10 mm cross-linked cruciate-retaining tibial insert. Polyethylene was then placed onto the tibial tray and locked into place. The knee was then reduced. The knee was again further irrigated with sterile saline solution with antibiotic added. The tourniquet was then deflated. The total tourniquet time for the procedure was 48 minutes at 250 mmHg. Final components were Fred Persona size 7, cruciate-retaining femoral component, a size E tibial tray, a 10 mm medial congruent cruciate-retaining polyethylene insert and a 32 x 9 mm patella. I then proceeded with closure. Again, the knee was thoroughly irrigated. The quadriceps tendon and the medial retinaculum were reapproximated with #2 Ethibond suture. The extensor mechanism was then closed with a running #2 Quill suture. Subcutaneous tissues were then closed with 2-0 Vicryl interrupted suture. The skin was closed with a running 3-0 Quill suture. Dermabond was applied to the incision. Sterile compressive dressing was then applied. All sponge and needle counts were deemed correct prior to closure. The patient tolerated the procedure without apparent complication. He was transferred to recovery room in stable condition. MMODL / IJN: [id number] /
[2020-04-04] MEDS ORDERED: SENNOSIDES-DOCUSATE SODIUM 1 EACH TAB PO SCH (21:00)
[2020-04-04] MEDS: ASPIRIN 81 MG PO SCH (21:37)
[2020-04-05] MEDS: HYDROcodone/APAP 10-325MG 1 EACH TAB PO PRN ×2 (04:20→10:19)
[2020-04-05 06:20] LABS: Basophils % (A) 0 %; Eosinophils % (A) 1 %; HCT 36.4 % (39.0-53.0); HGB 11.7 gm/dL (13.0-17.5); Lymphocytes # (A) 1.7 k/uL (1.0-4.8); Lymphocytes % (A) 19 %; MCH 32.9 pg (25.0-35.0); MCHC 32.2 g/dL (31.0-37.0); Mean Platelet Volume 8.5; Monocytes # (A) 0.5 k/uL (0-1.0); Monocytes % (A) 6 %; Neutrophils # (A) 6.3 k/uL (1.3-7.7); Neutrophils % (A) 73 %; Platelet Count 137 k/uL (150-450); RBC 3.57 m/uL (4.30-5.90); RDW 11.8 % (11.5-15.5); WBC 8.6 k/uL (3.8-10.6)
[2020-04-05 07:34] VITALS: BP 119/75; PULSE 60; RESP 18; TEMP 98.4
--- NOTE | 2020-04-05 08:02 | P.PN ---
Progress Note - Text The patient is status post right adductor canal catheter placement. The catheter was placed for postoperative pain control, status post total right arthroplasty. Ropivacaine 0.2% is infusing at 8 mLs per hour. The patient has no complaints of right lower extremity numbness or weakness. Patient's VAS score is 23 -10. The pain is located primarily in the posterior part of the knee. Assessment: Patient's adductor canal catheter is in place and working appropriately. Plan: continue infusion and adjust it as needed.
[2020-04-05] MEDS: ASPIRIN 81 MG PO SCH (08:03)
[2020-04-05] MEDS ORDERED: METOPROLOL SUCCINATE (ER) 50 MG TAB.ER.24H PO SCH (09:00)
[2020-04-05] MEDS ORDERED: PARoxetine 20 MG TAB PO SCH (09:00)
[2020-04-05] MEDS ORDERED: metFORMIN 500 MG TAB PO SCH (09:00)
--- NOTE | 2020-04-05 10:12 | P.DS ---
Providers Expected date of discharge: 04/05/20 Attending physician: Edwar Robison Consults: 04/04/20 09:53 Consult Physician Routine Consulting Provider: Inocencia Ashley Consult Reason/Comments: post op medical management Do you want consulting provider notified?: Yes Primary care physician: Inocencia Ashley - Discharge Diagnosis(es) (1) Status post total right knee replacement Patient was admitted to the OR on 04/04/2020 to undergo a right total knee arthroplasty. He had failed conservative measures as an outpatient and desired to proceed with elective surgery after given informed consent. He underwent the above procedure which he tolerated well without complication. Postoperative hospital course has remained without complication. On day of discharge he is afebrile, vital signs stable, labs within acceptable ranges, tolerating by mouth meds and diet, voiding without difficulty, positive flatus, denies abdominal pain or calf pain, pain is controlled on oral pain medication and has no new complaints. Wound is benign, neurovascular status is intact, calf is soft and nontender, abdomen soft and nontender. Review of systems is negative for numbness, tingling, fever, chills, chest pain, shortness of breath, nausea, vomiting, dizziness, headaches, slurred speech or other. Current Visit: Yes Status: Acute Priority: Medium Procedures: Right total knee replacement Patient Condition at Discharge: Good Plan - Discharge Summary Discharge Rx Participant: No New Discharge Prescriptions: New Aspirin [Adult Low Dose Aspirin EC] 81 mg PO BID #60 tablet. HYDROcodone/APAP 7.5-325MG [[place] 7.5-325] 1 - 2 each PO Q6HR PRN #56 tab PRN Reason: Pain No Action metFORMIN HCL [Glucophage] 500 mg PO BID Terazosin [Hytrin] 5 mg PO BID PARoxetine [Paxil] 20 mg PO DAILY Simvastatin [Zocor] 40 mg PO HS Metoprolol Succinate (ER) [Toprol XL] 50 mg PO DAILY Ibuprofen [Motrin] 800 mg PO TID PRN PRN Reason: Pain Aspirin 81 mg PO DAILY lisinopriL [Zestril] 40 mg PO HS Multivitamins, Thera [Multivitamin (formulary)] 2 tab PO DAILY Docusate [Colace] 100 mg PO BID #20 capsule Repaglinide 1 mg PO BID Empagliflozin [Jardiance] 12.5 mg PO DAILY Discharge Medication List Ibuprofen [Motrin] 800 mg PO TID PRN 03/29/17 [History] Metoprolol Succinate (ER) [Toprol XL] 50 mg PO DAILY 03/29/17 [History] PARoxetine [Paxil] 20 mg PO DAILY 03/29/17 [History] Simvastatin [Zocor] 40 mg PO HS 03/29/17 [History] Terazosin [Hytrin] 5 mg PO BID 03/29/17 [History] metFORMIN HCL [Glucophage] 500 mg PO BID 03/29/17 [History] Aspirin 81 mg PO DAILY 04/06/17 [History] lisinopriL [Zestril] 40 mg PO HS 08/30/17 [History] Multivitamins, Thera [Multivitamin (formulary)] 2 tab PO DAILY 09/16/17 [History] Docusate [Colace] 100 mg PO BID #20 capsule 09/24/17 [Rx] Empagliflozin [Jardiance] 12.5 mg PO DAILY 04/04/20 [History] Repaglinide 1 mg PO BID 04/04/20 [History] Aspirin [Adult Low Dose Aspirin EC] 81 mg PO BID #60 tablet. 04/05/20 [Rx] HYDROcodone/APAP 7.5-325MG [[place] 7.5-325] 1 - 2 each PO Q6HR PRN #56 tab 04/05/20 [Rx] Follow up Appointment(s)/Referral(s): Edwar Robison MD [STAFF PHYSICIAN] - 04/17/20 8:05 am [facility] Visiting Nurse, [NON-STAFF] - As Needed Activity/Diet/Wound Care/Special Instructions: Keep wound clean and dry Take meds as directed Follow-up with Dr. Robison in office Weight bear as tolerated May shower in 3 days if no bleeding Discharge Disposition: HOME WITH HOME HEALTH SERVICES
[2020-04-05] MEDS ORDERED: MULTIVITAMINS, THERA 1 EACH TAB PO SCH (12:00)
[2020-04-05] MEDS ORDERED: ATORVASTATIN 20 MG TAB PO SCH (21:00)
== END 2020-04-05 12:00 | disposition home health service (06) ==
LOC: OR 06:47 → 4SSUR 09:48 → OR 04-05 12:00
PROVIDERS: ATTEND Orthopaedic Surgery Sports Medicine
DX: M17.11 Unilateral primary osteoarthritis, right knee (principal); M25.761 Osteophyte, right knee; I10 Essential (primary) hypertension; E78.5 Hyperlipidemia, unspecified; G47.33 Obstructive sleep apnea (adult) (pediatric); Z91.040 Latex allergy status; F17.210 Nicotine dependence, cigarettes, uncomplicated; E11.9 Type 2 diabetes mellitus without complications; F41.9 Anxiety disorder, unspecified; Z99.89 Dependence on other enabling machines and devices; Z79.84 Long term (current) use of oral hypoglycemic drugs; Z79.899 Other long term (current) drug therapy; Z90.49 Acquired absence of other specified parts of digestive tract; Z98.890 Other specified postprocedural states; Z79.1 Long term (current) use of non-steroidal anti-inflammatories (NSAID)
CPT/HCPCS: 97116; 97110; 97161; 64448; 76942; 85025; 88300; 73560; 27447; C1776; C1713; J2250; J0171; J1100; J0690 ×2; J2405; J3010; J1885; J2795 ×2; J0735; J1170

== ENCOUNTER 2021-03-08 15:00 | Emergency (ER) | payer MEDICARE ==
[2021-03-08] MEDS ORDERED: ROCURONIUM 10 MG/ML (5 ML VIAL) IV STA (15:05)
[2021-03-08] MEDS ORDERED: ETOMIDATE 2 MG/ML 10 ML VIAL IVP STA (15:05)
[2021-03-08] MEDS ORDERED: SODIUM CHLORIDE 0.9% 1,000 ML IV STA (15:16)
[2021-03-08 15:22] VITALS: TEMP 98.2
[2021-03-08 15:36] LABS: Basophils # (A) 0.1 k/uL (0-0.2); Basophils % (A) 1 %; Eosinophils # (A) 0.6 k/uL (0-0.7); Eosinophils % (A) 7 %; HCT 37.6 % (39.0-53.0); HGB 12.9 gm/dL (13.0-17.5); Lymphocytes # (A) 2.8 k/uL (1.0-4.8); Lymphocytes % (A) 33 %; MCH 33.9 pg (25.0-35.0); MCHC 34.3 g/dL (31.0-37.0); MCV 98.9 fL (80.0-100.0); Monocytes # (A) 0.4 k/uL (0-1.0); Monocytes % (A) 5 %; Neutrophils # (A) 4.3 k/uL (1.3-7.7); Neutrophils % (A) 50 %; Platelet Count 109 k/uL (150-450); WBC 8.6 k/uL (3.8-10.6)
--- NOTE | 2021-03-08 15:40 | P.GSHP ---
History of Present Illness H&P Date: 03/08/21 This is a 70-year-old male who reportedly fell off a ladder and struck his head on concrete. He was unconscious at the scene. He was intubated in the emergency room prior to my arrival and a level I trauma was called. I arrived within 10 minutes patient had been intubated at a GCS of 3T. His obvious contusion over his right orbit with head injury. There are no other obvious injuries there is a small abrasion on his left lower extremity. The rest of his history and physical is obtained from chart review. There is also report of aspiration prior to intubation. Past Medical History Past Medical History: Diabetes Mellitus, Hyperlipidemia, Hypertension, Osteoarthritis (OA), Sleep Apnea/CPAP/BIPAP Additional Past Medical History / Comment(s): USES CPAP. LAP BAND W/ PORT PROBLEMS. History of Any Multi-Drug Resistant Organisms: None Reported Past Surgical History: Bariatric Surgery, Cholecystectomy, Joint Replacement, Orthopedic Surgery Additional Past Surgical History / Comment(s): PARTIAL LT KNEE REPLACEMENT. PARTIAL LT SHOULDER REPLACEMENT. RT WRIST SX. LAB BAND 2008 EST. COLONOSCOPY AND EGD. BILAT CATARACTS REMOVED WITH LENS IMPLANTS. lap band port replacement to right side abdomen 09-24-17 Past Anesthesia/Blood Transfusion Reactions: No Reported Reaction Past Psychological History: Anxiety Smoking Status: Current every day smoker Past Alcohol Use History: Occasional Past Drug Use History: None Reported - Past Family History Mother Family Medical History: No Reported History Medications and Allergies Home Medications Medication Instructions Recorded Confirmed Type Ibuprofen [Motrin] 800 mg PO TID PRN 03/29/17 04/04/20 History Metoprolol Succinate (ER) [Toprol 50 mg PO DAILY 03/29/17 04/04/20 History XL] PARoxetine [Paxil] 20 mg PO DAILY 03/29/17 04/04/20 History Simvastatin [Zocor] 40 mg PO HS 03/29/17 04/04/20 History Terazosin [Hytrin] 5 mg PO BID 03/29/17 04/04/20 History metFORMIN HCL [Glucophage] 500 mg PO BID 03/29/17 04/04/20 History Aspirin 81 mg PO DAILY 04/06/17 04/04/20 History lisinopriL [Zestril] 40 mg PO HS 08/30/17 04/04/20 History Multivitamins, Thera [Multivitamin 2 tab PO DAILY 09/16/17 04/04/20 History (formulary)] Docusate [Colace] 100 mg PO BID #20 capsule 09/24/17 04/04/20 Rx Empagliflozin [Jardiance] 12.5 mg PO DAILY 04/04/20 04/04/20 History Repaglinide 1 mg PO BID 04/04/20 04/04/20 History Aspirin [Adult Low Dose Aspirin EC] 81 mg PO BID #60 tablet.dr 04/05/20 Rx HYDROcodone/APAP 7.5-325MG [[place] 1 - 2 each PO Q6HR PRN #56 tab 04/05/20 Rx 7.5-325] Allergies Allergy/AdvReac Type Severity Reaction Status Date / Time latex Allergy Rash/Hives Verified 03/08/21 15:22 Surgical - Exam Osteopathic Statement: *. No significant issues noted on an osteopathic structural exam other than those noted in the History and Physical/Consult. Vital Signs Temp Pulse Resp BP Pulse Ox 98.2 F 80 20 172/93 98 03/08/21 15:03 03/08/21 15:03 03/08/21 15:03 03/08/21 15:03 03/08/21 15:03 - General other (Intubated unresponsive) - Eyes Obvious hematoma and injury to right orbit with ecchymosis and swelling - Neck no masses, trachea midline - Respiratory Intubated bilateral breath sounds present no crepitus - Cardiovascular Rhythm: regular - Abdomen Nondistended multiple laparoscopic incisions and what feels like a device which could be a port for a lap band. Abdomen: soft, non tender - Neurologic Intubated sedated and unresponsive no report of moving extremities prior to intubation per ER doctor - Psychiatric Intubated GCS of 3T Assessment and Plan Assessment: Traumatic fall from ladder with traumatic head injury obvious hematoma over right orbit. Ventilator dependent respiratory failure Plan: Patient is unresponsive a GCS of 3T. We'll do trauma workup chest x-ray pelvis x-ray CT had chest abdomen and pelvis and blood work patient will likely be transferred secondary to head injury to facility with neurosurgery, patient to remain in c-collar with C-spine precautions.
--- NOTE | 2021-03-08 15:40 | XR ---
EXAMINATION TYPE: XR pelvis AP view DATE OF EXAM: 03/08/2021 COMPARISON: NONE HISTORY: Fall. Pain. TECHNIQUE: Single view FINDINGS: There is no sign of intestinal obstruction or pneumoperitoneum. Fecal pattern is normal exa m limited by patient's size. There are no pathologic definite calcifications over the kidneys. IMPRESSION: Nonacute abdomen.
--- NOTE | 2021-03-08 15:41 | ED ---
General Adult HPI - General Chief complaint: Trauma Stated complaint: Cardiac arrest Time Seen by Provider: 03/08/21 15:16 Source: EMS Mode of arrival: EMS Limitations: altered mental status, physical limitation - History of Present Illness Initial comments: Dictation was produced using [employer] dictation software. please excuse any grammatical, word or spelling errors. Chief Complaint: 70-year-old male presents to the emergency department after head injury History of Present Illness: Patient is 70-year-old male he was allegedly on the ladder and fell. EMS was called. Patient was unresponsive for EMS. He was placed in a c-collar brought to emergency department. Upon initial EMS arrival he was found unresponsive on the ground on top of the ladder periods unclear exactly how far patient fell. EMR review shows that patient is not on any anticoagulation medications. EMR also reports that patient has history of diabetes, dyslipidemia and hypertension. Unable to obtain secondary to mental status PHYSICAL EXAM: General Impression: Obtunded, unresponsive, eyes closed, GCS 3 HEENT: Severe swelling to the right periorbital area, no nasal septal hematoma, extra-ocular movements intact, pupils equal and reactive to light bilaterally, mucous membranes moist. Cardiovascular: Heart regular rate and rhythm Chest: Able to complete full sentences, no retractions, no tachypnea Abdomen: abdomen soft, non-tender, non-distended, no organomegaly Musculoskeletal: Pulses present and equal in all extremities, no peripheral edema Motor: no focal deficits noted Neurological: CN II-XII grossly intact, no focal motor or sensory deficits noted Skin: Abrasions to the bilateral dorsum of the feet Psych: Normal affect and mood ED course: 70-year-old male presents emergency Department after fall from unspecified height. Patient has external signs of trauma to the right periorbital area. His unresponsive. Concerning for significant brain injury. Patient activated level I trauma. Patient seen and evaluated in [facility] for via ATLS protocol. Patient was intubated for airway protection and patient was unresponsive. Concern for significant intracranial traumatic injury. Chest x-ray and pelvis x-ray unremarkable. There is good placement of endotracheal tube. [place] CT was ordered. EMR was reviewed. There does not appear to be any prescriptions for adequate ablation medications. Spoke with Dr. Talley at 1553. I did review the films in CT suite. There was obvious subarachnoid hemorrhage. It is worrisome for traumatic subarachnoid hemorrhage. Dr. Talley requests that I call him back once radiology films wereread I spoke with the radiologist Dr. Jones at 4:08 PM. He read the films for me ovoer the phone. There is a subarachnoid hemorrhage likely traumatic. There is concern for frontal sinus fracture with pneumocephalus. No other injuries noted on the C-spine, chest abdomen pelvis. Abelardo García was paged again. laboratory evaluation obtained. CBC, coag panel, metabolic panel, urinalysis all within acceptable limits. Urine drug screen is negative. Patient started on nicardipine infusion for elevated blood pressure. I did speak with Dr. Talley at 4:38 PM who is willing to accept patient care for transfer. EKG interpretation: Ventricular rate 73, sinus rhythm,. 160, QRS 94, QTC 460. No VA prolongation, no QTC prolongation, no ST or T-wave changes noted. Overall, this EKG is unremarkable - Related Data Home Medications Medication Instructions Recorded Confirmed Ibuprofen [Motrin] 800 mg PO TID PRN 03/29/17 04/04/20 Metoprolol Succinate (ER) [Toprol 50 mg PO DAILY 03/29/17 04/04/20 XL] PARoxetine [Paxil] 20 mg PO DAILY 03/29/17 04/04/20 Simvastatin [Zocor] 40 mg PO HS 03/29/17 04/04/20 Terazosin [Hytrin] 5 mg PO BID 03/29/17 04/04/20 metFORMIN HCL [Glucophage] 500 mg PO BID 03/29/17 04/04/20 Aspirin 81 mg PO DAILY 04/06/17 04/04/20 lisinopriL [Zestril] 40 mg PO HS 08/30/17 04/04/20 Multivitamins, Thera [Multivitamin 2 tab PO DAILY 09/16/17 04/04/20 (formulary)] Empagliflozin [Jardiance] 12.5 mg PO DAILY 04/04/20 04/04/20 Repaglinide 1 mg PO BID 04/04/20 04/04/20 Previous Rx's Medication Instructions Recorded Docusate [Colace] 100 mg PO BID #20 capsule 09/24/17 Aspirin [Adult Low Dose Aspirin EC] 81 mg PO BID #60 tablet. 04/05/20 HYDROcodone/APAP 7.5-325MG [[place] 1 - 2 each PO Q6HR PRN #56 tab 04/05/20 7.5-325] Allergies Allergy/AdvReac Type Severity Reaction Status Date / Time latex Allergy Rash/Hives Verified 03/08/21 15:22 Review of Systems ROS Statement: Those systems with pertinent positive or pertinent negative responses have been documented in the HPI. ROS Other: All systems not noted in ROS Statement are negative. Past Medical History Past Medical History: Diabetes Mellitus, Hyperlipidemia, Hypertension, Osteoarthritis (OA), Sleep Apnea/CPAP/BIPAP Additional Past Medical History / Comment(s): USES CPAP. LAP BAND W/ PORT PROBLEMS. History of Any Multi-Drug Resistant Organisms: None Reported Past Surgical History: Bariatric Surgery, Cholecystectomy, Joint Replacement, Orthopedic Surgery Additional Past Surgical History / Comment(s): PARTIAL LT KNEE REPLACEMENT. PARTIAL LT SHOULDER REPLACEMENT. RT WRIST SX. LAB BAND 2008 EST. COLONOSCOPY AND EGD. BILAT CATARACTS REMOVED WITH LENS IMPLANTS. lap band port replacement to right side abdomen 09-24-17 Past Anesthesia/Blood Transfusion Reactions: No Reported Reaction Past Psychological History: Anxiety Smoking Status: Current every day smoker Past Alcohol Use History: Occasional Past Drug Use History: None Reported - Past Family History Mother Family Medical History: No Reported History General Exam Limitations: altered mental status, physical limitation Course Vital Signs 03/08/21 15:03 Temperature 98.2 F Pulse Rate 80 Respiratory 20 Rate Blood Pressure 172/93 O2 Sat by Pulse 98 Oximetry Medical Decision Making - Lab Data Result diagrams: 03/08/21 15:22 03/08/21 15:22 Lab Results 03/08/21 03/08/21 03/08/21 Range/Units 15:22 15:22 15:22 WBC 8.6 (3.8-10.6) k/uL RBC 3.80 L (4.30-5.90) m/uL Hgb 12.9 L (13.0-17.5) gm/dL Hct 37.6 L (39.0-53.0) % MCV 98.9 (80.0-100.0) fL MCH 33.9 (25.0-35.0) pg MCHC 34.3 (31.0-37.0) g/dL RDW 13.0 (11.5-15.5) % Plt Count 109 L (150-450) k/uL MPV 9.0 Neutrophils % 50 % Lymphocytes % 33 % Monocytes % 5 % Eosinophils % 7 % Basophils % 1 % Neutrophils # 4.3 (1.3-7.7) k/uL Lymphocytes # 2.8 (1.0-4.8) k/uL Monocytes # 0.4 (0-1.0) k/uL Eosinophils # 0.6 (0-0.7) k/uL Basophils # 0.1 (0-0.2) k/uL PT 11.7 (9.0-12.0) sec INR 1.1 (<1.2) APTT 27.1 (22.0-30.0) sec Sodium (137-145) mmol/L Potassium (3.5-5.1) mmol/L Chloride (98-107) mmol/L Carbon Dioxide (22-30) mmol/L Anion Gap mmol/L BUN (9-20) mg/dL Creatinine (0.66-1.25) mg/dL Est GFR (CKD-EPI)AfAm (>60 ml/min/1.73 sqM) Est GFR (CKD-EPI)NonAf (>60 ml/min/1.73 sqM) Glucose (74-99) mg/dL Calcium (8.4-10.2) mg/dL Total Bilirubin (0.2-1.3) mg/dL AST (17-59) U/L ALT (4-49) U/L Alkaline Phosphatase (38-126) U/L Troponin I (0.000-0.034) ng/mL Total Protein (6.3-8.2) g/dL Albumin (3.5-5.0) g/dL Urine Color Yellow Urine Appearance Clear (Clear) Urine pH 5.5 (5.0-8.0) Ur Specific [place] 1.019 (1.001-1.035) Urine Protein 2+ H (Negative) Urine Glucose (UA) 4+ H (Negative) Urine Ketones Negative (Negative) Urine Blood Small H (Negative) Urine Nitrite Negative (Negative) Urine Bilirubin Negative (Negative) Urine Urobilinogen <2.0 (<2.0) mg/dL Ur Leukocyte Esterase Negative (Negative) Urine RBC 4 (0-5) /hpf Urine WBC <1 (0-5) /hpf Ur Squamous Epith Cells <1 (0-4) /hpf Hyaline Casts 13 H (0-2) /lpf Urine Mucus Rare H (None) /hpf Urine Opiates Screen Not Detected (NotDetected) Ur Oxycodone Screen Not Detected (NotDetected) Urine Methadone Screen Not Detected (NotDetected) Ur Propoxyphene Screen Not Detected (NotDetected) Ur Barbiturates Screen Not Detected (NotDetected) U Tricyclic Antidepress Not Detected (NotDetected) Ur Phencyclidine Scrn Not Detected (NotDetected) Ur Amphetamines Screen Not Detected (NotDetected) U Methamphetamines Scrn Not Detected (NotDetected) U Benzodiazepines Scrn Not Detected (NotDetected) Urine Cocaine Screen Not Detected (NotDetected) U Marijuana (THC) Screen Not Detected (NotDetected) Serum Alcohol mg/dL Blood Type Blood Type Recheck Bld Type Recheck Status Antibody Screen Spec Expiration Date 03/08/21 03/08/21 03/08/21 Range/Units 15:22 15:22 15:22 WBC (3.8-10.6) k/uL RBC (4.30-5.90) m/uL Hgb (13.0-17.5) gm/dL Hct (39.0-53.0) % MCV (80.0-100.0) fL MCH (25.0-35.0) pg MCHC (31.0-37.0) g/dL RDW (11.5-15.5) % Plt Count (150-450) k/uL MPV Neutrophils % % Lymphocytes % % Monocytes % % Eosinophils % % Basophils % % Neutrophils # (1.3-7.7) k/uL Lymphocytes # (1.0-4.8) k/uL Monocytes # (0-1.0) k/uL Eosinophils # (0-0.7) k/uL Basophils # (0-0.2) k/uL PT (9.0-12.0) sec INR (<1.2) APTT (22.0-30.0) sec Sodium 140 (137-145) mmol/L Potassium 4.5 (3.5-5.1) mmol/L Chloride 104 (98-107) mmol/L Carbon Dioxide 21 L (22-30) mmol/L Anion Gap 15 mmol/L BUN 36 H (9-20) mg/dL Creatinine 1.40 H (0.66-1.25) mg/dL Est GFR (CKD-EPI)AfAm 58 (>60 ml/min/1.73 sqM) Est GFR (CKD-EPI)NonAf 50 (>60 ml/min/1.73 sqM) Glucose 146 H (74-99) mg/dL Calcium 9.4 (8.4-10.2) mg/dL Total Bilirubin 0.5 (0.2-1.3) mg/dL AST 44 (17-59) U/L ALT 28 (4-49) U/L Alkaline Phosphatase 70 (38-126) U/L Troponin I <0.012 (0.000-0.034) ng/mL Total Protein 7.0 (6.3-8.2) g/dL Albumin 4.1 (3.5-5.0) g/dL Urine Color Urine Appearance (Clear) Urine pH (5.0-8.0) Ur Specific [place] (1.001-1.035) Urine Protein (Negative) Urine Glucose (UA) (Negative) Urine Ketones (Negative) Urine Blood (Negative) Urine Nitrite (Negative) Urine Bilirubin (Negative) Urine Urobilinogen (<2.0) mg/dL Ur Leukocyte Esterase (Negative) Urine RBC (0-5) /hpf Urine WBC (0-5) /hpf Ur Squamous Epith Cells (0-4) /hpf Hyaline Casts (0-2) /lpf Urine Mucus (None) /hpf Urine Opiates Screen (NotDetected) Ur Oxycodone Screen (NotDetected) Urine Methadone Screen (NotDetected) Ur Propoxyphene Screen (NotDetected) Ur Barbiturates Screen (NotDetected) U Tricyclic Antidepress (NotDetected) Ur Phencyclidine Scrn (NotDetected) Ur Amphetamines Screen (NotDetected) U Methamphetamines Scrn (NotDetected) U Benzodiazepines Scrn (NotDetected) Urine Cocaine Screen (NotDetected) U Marijuana (THC) Screen (NotDetected) Serum Alcohol <10 mg/dL Blood Type O Positive Blood Type Recheck No Previous Record Bld Type Recheck Status CABO Indicated Antibody Screen NEGATIVE Spec Expiration Date 03/11/20217 Critical Care Time Critical Care Time: Yes Total Critical Care Time: 33 Disposition Clinical Impression: Traumatic subarachnoid hemorrhage Disposition: OTHER INSTITUTION NOT DEFINED Condition: Critical Referrals: Inocencia Ashley DO [Primary Care Provider] - 1-2 days - Out of Hospital Transfer - Req. Specs Out of Hospital Transfer - Requested Specifics: Other Emergency Center ([facility])
[2021-03-08 15:43] LABS: Appearance,Urine Clear (Clear); Bilirubin,Urine Negative (Negative); Blood,Urine Small (Negative); Color,Urine Yellow; Glucose,Urine (UA) 4+ (Negative); Hyaline Casts,Urine 13 /lpf (0-2); Ketones,Urine Negative (Negative); Leukocyte Esterase,Urine Negative (Negative); Mucus,Urine Rare /hpf; Nitrite,Urine Negative (Negative); PH, Urine 5.5 (5.0-8.0); Protein,Urine 2+ (Negative); RBC,Urine 4 /hpf (0-5); Specific Gravity,Urine 1.019 (1.001-1.035); Squamous Epithelial Cell,Urine <1 /hpf (0-4); Urobilinogen,Urine <2.0 mg/dL (<2.0); WBC,Urine <1 /hpf (0-5)
[2021-03-08 15:46] LABS: INR 1.1 (<1.2); Partial Thromboplastin Time 27.1 sec (22.0-30.0); Prothrombin Time 11.7 sec (9.0-12.0)
--- NOTE | 2021-03-08 15:47 | XR ---
EXAMINATION TYPE: XR chest 1V portable DATE OF EXAM: 03/08/2021 COMPARISON: 03/29/2017 HISTORY: Trauma. Chest pain TECHNIQUE: FINDINGS: There is some coarse interstitial density at the lung bases. There is endotracheal tube 2.3 cm from the federico. There is left shoulder prosthesis. There are chest leads. IMPRESSION: Interstitial infiltrate in subsegmental atelectasis at the lung bases is mostly new bryan red to last exam. No heart failure.
[2021-03-08 15:49] LABS: ALT 28 U/L (4-49); AST 44 U/L (17-59); African American GFR (CKD) 58 (>60 ml/min/1.73 sqM); Albumin 4.1 g/dL (3.5-5.0); Alcohol <10 mg/dL; Alkaline Phosphatase 70 U/L (38-126); Anion Gap 15 mmol/L; Blood Urea Nitrogen 36 mg/dL (9-20); Calcium 9.4 mg/dL (8.4-10.2); Carbon Dioxide 21 mmol/L (22-30); Chloride 104 mmol/L (98-107); Glucose 146 mg/dL (74-99); Non-African American GFR(CKD) 50 (>60 ml/min/1.73 sqM); Potassium 4.5 mmol/L (3.5-5.1); Sodium 140 mmol/L (137-145); Total Bilirubin 0.5 mg/dL (0.2-1.3)
[2021-03-08 15:51] LABS: Amphetamine Screen,Urine Not Detected (NotDetected); Barbiturate Screen,Urine Not Detected (NotDetected); Benzodiazepines Screen,Urine Not Detected (NotDetected); Cocaine Screen,Urine Not Detected (NotDetected); Methadone Screen, Urine Not Detected (NotDetected); Opiate Screen,Urine Not Detected (NotDetected); Oxycodone Screen, Urine Not Detected (NotDetected); Phencyclidine Screen,Urine Not Detected (NotDetected); Tricyclic Antidepressant,Urine Not Detected (NotDetected); Urn Cannabinoid Scrn Not Detected (NotDetected)
[2021-03-08] MEDS ORDERED: niCARdipine 20 MG in SODIUM CHLORIDE 0.9% 192 ML IV SCH (16:00)
--- NOTE | 2021-03-08 16:24 | CT ---
EXAMINATION TYPE: CT brain zackaryine wo con DATE OF EXAM: 03/08/2021 COMPARISON: HISTORY: trauma, fall, cardiac arrest CT DLP: 1809.7 mGycm Automated exposure control for dose reduction was used. There is high attenuation throughout the subarachnoid space of both cerebral hemispheres over both ce rebral hemispheres. There is also some high attenuation in the fourth ventricle and at the basal cist erns. There is no hemorrhage in the lateral ventricles. Lateral ventricles have normal size. There is no significant subarachnoid hemorrhage at the [place] of [place]. There is extensive soft tissue swelling over the right temporal bone and right orbit. There is small amount of intracranial air bubbles at the frontal lobe convexities and in the anterior left middle cr anial fossa. There are small air bubbles also in the superior medial aspect of the left orbit. This i s probably related to fracture of the frontal sinus. Fracture line not seen. There is mucosal thicken ing in the frontal and ethmoid sinuses. Zygomatic arches appear intact. Maxilla is intact. Cervical vertebra have fairly normal alignment. There is degenerative disc space nor in from C4 to C7 with spurring of the endplates. Facet joints are intact. There is no compression fracture. IMPRESSION: There is massive subarachnoid hemorrhage in both cerebral hemispheres. This is probably traumatic hem orrhage. No significant subdural hemorrhage. No epidural hemorrhage. Intracranial air consistent with frontal sinus fracture. No fracture line seen. Left-sided intraorbit al air also consistent with sinus fracture. Extensive soft tissue swelling on the right side. Increased density in the ethmoid and frontal sinuses that is probably related to hemorrhage. No acute abnormality of the cervical spine. Spondylotic changes. This exam was discussed with ER physician at 4:15 PM.
--- NOTE | 2021-03-08 16:29 | CT ---
EXAMINATION TYPE: CT ChestAbdPelvis w con DATE OF EXAM: 03/08/2021 COMPARISON: None HISTORY: Trauma, fall, cardiac arrest CT DLP: 2421 mGycm Automated exposure control for dose reduction was used. CONTRAST: Performed with IV Contrast, patient injected with 100 mL of Isovue 300. Images obtained from the thoracic inlet to the floor the pelvis with IV contrast. There is infiltrate and atelectasis in the posterior lung krishna bilaterally. Heart appears enlarged. There is no mediastinal adenopathy. There is endotracheal tube noted. Thoracic aorta is intact. Ther e is no aneurysm or dissection. There are no hilar masses. There is gastric area at the surgery noted. Liver spleen stomach pancreas appear intact. There are cl ips from cholecystectomy. The bile ducts are not dilated. There is no adrenal mass. Kidneys show satisfactory contrast opacification. There is no hydronephrosi s. There is 4 mm nonobstructing calculus in the left kidney. There is no retroperitoneal adenopathy. Ureters are not dilated. There is Guzman catheter in the urinary bladder. There is no inguinal hernia. There is no evidence of a pelvic mass. There is no mesenteric edema. There is no ascites or free air. There is no bowel obstruction. There is a second-degree L5-S1 spondylolisthesis. There is bilateral L5 spondylolysis. The thoracic a nd lumbar vertebra show degenerative spur formation. There is no significant compression deformity. T he sternum appears intact. Hip joints are intact. I see no evidence of a pelvic fracture. Sacroiliac joints are intact. There is left shoulder prosthesis. There is osteoarthritis in the right shoulder j oint. I see no evidence of a displaced rib fracture. IMPRESSION: There is some patchy infiltrate and atelectasis in the posterior lung krishna. No fracture seen. No ac pilot point abnormality within the abdomen pelvis. Cardiomegaly.
[2021-03-08] MEDS ORDERED: EPINEPHrine 4 MG in DEXTROSE 5% IN WATER 250 ML IV ONE ×2 (17:33)
[2021-03-08] MEDS ORDERED: NOREPINEPHRINE 8 MG in SODIUM CHLORIDE 0.9% 250 ML IV ONE (17:43)
[2021-03-08] MEDS ORDERED: SODIUM CHLORIDE 0.9% 150 ML with VASOPRESSIN 60 UNIT IV SCH ×2 (17:45)
--- NOTE | 2021-03-08 17:46 | ED ---
Medical Decision Making - Medical Decision Making Just before patient was about to be disposition patient began having multiple episodes of bradycardia, pulseless electrical activity. Point of care bedside ultrasound is performed showing slow cardiac movement but no pericardial effusion. FAST exam shows no free abdominal fluid. Repeat chest x-ray shows no pneumothorax or pulmonary process. Patient had multiple episodes of bradycardia down to the 40s with loss of pulse with electrical activity. ROSC is achieved after 1-2 cycles of CPR. Patient's prognosis is guarded. He is in critical condition. Patient started on epinephrine infusion and vasopressin. At this point's unclear what's causing patient's episodes of PEA but there is strong clinical concern that patient's cardiac dysrhythmia secondary to increased intracranial pressure. No other obvious source of cardiac arrest. Patient observed in emergency department is starting to remain stable. Patient is in critical condition. Sister was updated. she is at the bedside. Patient's is apparently out of town. Patient is full code. Patient discharged via [facility] ambulance with nurse. Patient was transferred with labile affect, epinephrine and vasopressin infusion. Patient's clinical condition is very critical. - Lab Data Result diagrams: 03/08/21 15:22 03/08/21 15:22 Lab Results 03/08/21 03/08/21 03/08/21 Range/Units 15:22 15:22 15:22 WBC 8.6 (3.8-10.6) k/uL RBC 3.80 L (4.30-5.90) m/uL Hgb 12.9 L (13.0-17.5) gm/dL Hct 37.6 L (39.0-53.0) % MCV 98.9 (80.0-100.0) fL MCH 33.9 (25.0-35.0) pg MCHC 34.3 (31.0-37.0) g/dL RDW 13.0 (11.5-15.5) % Plt Count 109 L (150-450) k/uL MPV 9.0 Neutrophils % 50 % Lymphocytes % 33 % Monocytes % 5 % Eosinophils % 7 % Basophils % 1 % Neutrophils # 4.3 (1.3-7.7) k/uL Lymphocytes # 2.8 (1.0-4.8) k/uL Monocytes # 0.4 (0-1.0) k/uL Eosinophils # 0.6 (0-0.7) k/uL Basophils # 0.1 (0-0.2) k/uL PT 11.7 (9.0-12.0) sec INR 1.1 (<1.2) APTT 27.1 (22.0-30.0) sec Sodium (137-145) mmol/L Potassium (3.5-5.1) mmol/L Chloride (98-107) mmol/L Carbon Dioxide (22-30) mmol/L Anion Gap mmol/L BUN (9-20) mg/dL Creatinine (0.66-1.25) mg/dL Est GFR (CKD-EPI)AfAm (>60 ml/min/1.73 sqM) Est GFR (CKD-EPI)NonAf (>60 ml/min/1.73 sqM) Glucose (74-99) mg/dL Calcium (8.4-10.2) mg/dL Total Bilirubin (0.2-1.3) mg/dL AST (17-59) U/L ALT (4-49) U/L Alkaline Phosphatase (38-126) U/L Troponin I (0.000-0.034) ng/mL Total Protein (6.3-8.2) g/dL Albumin (3.5-5.0) g/dL Urine Color Yellow Urine Appearance Clear (Clear) Urine pH 5.5 (5.0-8.0) Ur Specific [place] 1.019 (1.001-1.035) Urine Protein 2+ H (Negative) Urine Glucose (UA) 4+ H (Negative) Urine Ketones Negative (Negative) Urine Blood Small H (Negative) Urine Nitrite Negative (Negative) Urine Bilirubin Negative (Negative) Urine Urobilinogen <2.0 (<2.0) mg/dL Ur Leukocyte Esterase Negative (Negative) Urine RBC 4 (0-5) /hpf Urine WBC <1 (0-5) /hpf Ur Squamous Epith Cells <1 (0-4) /hpf Hyaline Casts 13 H (0-2) /lpf Urine Mucus Rare H (None) /hpf Urine Opiates Screen Not Detected (NotDetected) Ur Oxycodone Screen Not Detected (NotDetected) Urine Methadone Screen Not Detected (NotDetected) Ur Propoxyphene Screen Not Detected (NotDetected) Ur Barbiturates Screen Not Detected (NotDetected) U Tricyclic Antidepress Not Detected (NotDetected) Ur Phencyclidine Scrn Not Detected (NotDetected) Ur Amphetamines Screen Not Detected (NotDetected) U Methamphetamines Scrn Not Detected (NotDetected) U Benzodiazepines Scrn Not Detected (NotDetected) Urine Cocaine Screen Not Detected (NotDetected) U Marijuana (THC) Screen Not Detected (NotDetected) Serum Alcohol mg/dL Blood Type Blood Type Recheck Bld Type Recheck Status Antibody Screen Spec Expiration Date 03/08/21 03/08/21 03/08/21 Range/Units 15:22 15:22 15:22 WBC (3.8-10.6) k/uL RBC (4.30-5.90) m/uL Hgb (13.0-17.5) gm/dL Hct (39.0-53.0) % MCV (80.0-100.0) fL MCH (25.0-35.0) pg MCHC (31.0-37.0) g/dL RDW (11.5-15.5) % Plt Count (150-450) k/uL MPV Neutrophils % % Lymphocytes % % Monocytes % % Eosinophils % % Basophils % % Neutrophils # (1.3-7.7) k/uL Lymphocytes # (1.0-4.8) k/uL Monocytes # (0-1.0) k/uL Eosinophils # (0-0.7) k/uL Basophils # (0-0.2) k/uL PT (9.0-12.0) sec INR (<1.2) APTT (22.0-30.0) sec Sodium 140 (137-145) mmol/L Potassium 4.5 (3.5-5.1) mmol/L Chloride 104 (98-107) mmol/L Carbon Dioxide 21 L (22-30) mmol/L Anion Gap 15 mmol/L BUN 36 H (9-20) mg/dL Creatinine 1.40 H (0.66-1.25) mg/dL Est GFR (CKD-EPI)AfAm 58 (>60 ml/min/1.73 sqM) Est GFR (CKD-EPI)NonAf 50 (>60 ml/min/1.73 sqM) Glucose 146 H (74-99) mg/dL Calcium 9.4 (8.4-10.2) mg/dL Total Bilirubin 0.5 (0.2-1.3) mg/dL AST 44 (17-59) U/L ALT 28 (4-49) U/L Alkaline Phosphatase 70 (38-126) U/L Troponin I <0.012 (0.000-0.034) ng/mL Total Protein 7.0 (6.3-8.2) g/dL Albumin 4.1 (3.5-5.0) g/dL Urine Color Urine Appearance (Clear) Urine pH (5.0-8.0) Ur Specific [place] (1.001-1.035) Urine Protein (Negative) Urine Glucose (UA) (Negative) Urine Ketones (Negative) Urine Blood (Negative) Urine Nitrite (Negative) Urine Bilirubin (Negative) Urine Urobilinogen (<2.0) mg/dL Ur Leukocyte Esterase (Negative) Urine RBC (0-5) /hpf Urine WBC (0-5) /hpf Ur Squamous Epith Cells (0-4) /hpf Hyaline Casts (0-2) /lpf Urine Mucus (None) /hpf Urine Opiates Screen (NotDetected) Ur Oxycodone Screen (NotDetected) Urine Methadone Screen (NotDetected) Ur Propoxyphene Screen (NotDetected) Ur Barbiturates Screen (NotDetected) U Tricyclic Antidepress (NotDetected) Ur Phencyclidine Scrn (NotDetected) Ur Amphetamines Screen (NotDetected) U Methamphetamines Scrn (NotDetected) U Benzodiazepines Scrn (NotDetected) Urine Cocaine Screen (NotDetected) U Marijuana (THC) Screen (NotDetected) Serum Alcohol <10 mg/dL Blood Type O Positive Blood Type Recheck No Previous Record Bld Type Recheck Status CABO Indicated Antibody Screen NEGATIVE Spec Expiration Date 03/11/20212321 Critical Care Time Critical Care Time: Yes Total Critical Care Time: 33 Disposition Clinical Impression: Traumatic subarachnoid hemorrhage, Pulseless electrical activity Disposition: OTHER INSTITUTION NOT DEFINED Condition: Critical Referrals: Inocencia Ashley, DO [Primary Care Provider] - 1-2 days - Out of Hospital Transfer - Req. Specs Out of Hospital Transfer - Requested Specifics: Other Emergency Center ([facility])
--- NOTE | 2021-03-08 18:03 | XR ---
EXAMINATION TYPE: XR chest 1V portable DATE OF EXAM: 03/08/2021 COMPARISON: Today HISTORY: Respiratory failure TECHNIQUE: Single view FINDINGS: There is endotracheal tube 3.5 cm from the federico. There is nasogastric tube in the stomach . There is some atelectasis left lung base. There is no heart failure. Trachea is midline. There is n o pneumothorax. There are chest leads. IMPRESSION: Tubing in good position. There is some atelectasis left lung base.
[2021-03-08 22:24] VITALS: BP 118/73; PULSE 146; RESP 24
== END 2021-03-08 18:43 | disposition other institution (70) ==
LOC: EC 15:00
DX: S06.6X0A Traumatic subarachnoid hemorrhage without loss of consciousness, initial encounter (principal); I46.9 Cardiac arrest, cause unspecified; E78.5 Hyperlipidemia, unspecified; M19.90 Unspecified osteoarthritis, unspecified site; E11.9 Type 2 diabetes mellitus without complications; I10 Essential (primary) hypertension; F17.200 Nicotine dependence, unspecified, uncomplicated; Z91.040 Latex allergy status; Z79.899 Other long term (current) drug therapy; Z79.84 Long term (current) use of oral hypoglycemic drugs; Z79.82 Long term (current) use of aspirin; Z46.82 Encounter for fitting and adjustment of non-vascular catheter; W11.XXXA Fall on and from ladder, initial encounter
CPT/HCPCS: 36415; 94002; 93005; 86900; 86901; 80053; 84484; 85025; 85610; 85730; 86850; 81001; 80306; 72170; 71045; 72125; 70450; 71260; 74177; 99291; 92950; 31500; 96365; 96361; G0480; J0171; J2704; Q9967; 80320